=== PATIENT | female | born 1945 | race Caucasian/White ===

== ENCOUNTER → 2016-08-06 | Outpatient (CLI) | payer MEDICARE, BC ==
[2016-08-06 10:01] LABS: CH 29.4; CHCM 33.1; HDW 2.62; HGB 14.3 gm/dL (11.4-16.0); MCH 28.9 pg (25.0-35.0); MCHC 32.4 g/dL (31.0-37.0); MCV 89.1 fL (80.0-100.0); Mean Platelet Volume 8.7; RBC 4.94 m/uL (3.80-5.40); RDW 12.6 % (11.5-15.5); WBC 8.3 k/uL (3.8-10.6)
[2016-08-06 10:17] LABS: ALT 40 U/L (9-52); AST 28 U/L (14-36); Alkaline Phosphatase 117 U/L (38-126); Anion Gap 10 mmol/L; Blood Urea Nitrogen 11 mg/dL (7-17); Calcium 9.8 mg/dL (8.4-10.2); Carbon Dioxide 28 mmol/L (22-30); Chloride 106 mmol/L (98-107); Cholesterol 116 mg/dL (<200); Glucose 147 mg/dL (74-99); HDL Cholesterol 50 mg/dL (40-60); Non-African American GFR(MDRD) >60 (>60 ml/min/1.73 sqM); Potassium 4.4 mmol/L (3.5-5.1); Sodium 144 mmol/L (137-145); Total Bilirubin 0.8 mg/dL (0.2-1.3); Triglycerides 116 mg/dL (<150)
[2016-08-06 11:39] LABS: Hemoglobin A1C 7.1 % (4.2-6.1)
== END | disposition home or self-care (01) ==
LOC: LABWHC1 09:39
PROVIDERS: ATTEND Internal Medicine
DX: E11.9 Type 2 diabetes mellitus without complications (principal)
CPT/HCPCS: 36415; 80053; 80061; 83036; 84439; 84443; 85027

== ENCOUNTER → 2016-08-24 | Outpatient (CLI) | payer MEDICARE, BC ==
--- NOTE | 2016-08-25 10:07 | MM ---
Reason for exam: screening (asymptomatic). Last mammogram was performed 1 year ago. History: Patient is postmenopausal and history of other cancer. Physical Findings: A clinical breast exam by your physician is recommended on an annual basis and results should be correlated with mammographic findings. MG 3D Screening Mammo W/Cad Bilateral CC and MLO view(s) were taken. Prior study comparison: August 21, 2015, bilateral MG 3d screening mammo w/cad. August 22, 2014, bilateral MG work up mamm w CAD BILAT. There are scattered fibroglandular densities. Finding: There are typically benign round calcifications in both breasts. There is no discrete abnormality. ASSESSMENT: Benign, BI-RAD 2 RECOMMENDATION: Routine screening mammogram of both breasts in 1 year.
== END | disposition home or self-care (01) ==
LOC: RADMAMWWP 13:17
PROVIDERS: ATTEND Internal Medicine
DX: Z12.31 Encounter for screening mammogram for malignant neoplasm of breast (principal)
CPT/HCPCS: 77063; G0202

== ENCOUNTER → 2016-11-05 | Outpatient (CLI) | payer MEDICARE, BC ==
[2016-11-05 10:54] LABS: CH 29.3; CHCM 32.8; HDW 2.53; HGB 13.2 gm/dL (11.4-16.0); MCHC 32.3 g/dL (31.0-37.0); MCV 89.6 fL (80.0-100.0); Mean Platelet Volume 8.2; RBC 4.57 m/uL (3.80-5.40); RDW 12.7 % (11.5-15.5); WBC 6.4 k/uL (3.8-10.6)
[2016-11-05 11:12] LABS: ALT 38 U/L (9-52); AST 29 U/L (14-36); Alkaline Phosphatase 123 U/L (38-126); Anion Gap 9 mmol/L; Blood Urea Nitrogen 18 mg/dL (7-17); Calcium 9.7 mg/dL (8.4-10.2); Carbon Dioxide 26 mmol/L (22-30); Chloride 108 mmol/L (98-107); Cholesterol 101 mg/dL (<200); Glucose 145 mg/dL (74-99); HDL Cholesterol 45 mg/dL (40-60); Non-African American GFR(MDRD) >60 (>60 ml/min/1.73 sqM); Potassium 4.6 mmol/L (3.5-5.1); Sodium 143 mmol/L (137-145); Total Bilirubin 0.7 mg/dL (0.2-1.3); Total Protein 6.9 g/dL (6.3-8.2); Triglycerides 90 mg/dL (<150)
== END | disposition home or self-care (01) ==
LOC: LABWHC1 10:21
PROVIDERS: ATTEND Internal Medicine
DX: Z00.00 Encounter for general adult medical examination without abnormal findings (principal); E11.9 Type 2 diabetes mellitus without complications; I10 Essential (primary) hypertension; E78.00 Pure hypercholesterolemia, unspecified; E03.9 Hypothyroidism, unspecified
CPT/HCPCS: 36415; 80053; 80061; 83036; 84439; 84443; 85027

== ENCOUNTER → 2017-02-05 | Outpatient (CLI) | payer MEDICARE, BC ==
[2017-02-05 09:47] LABS: CHCM 33.7; HCT 40.9 % (34.0-46.0); HDW 2.49; HGB 13.3 gm/dL (11.4-16.0); MCH 29.2 pg (25.0-35.0); MCHC 32.6 g/dL (31.0-37.0); MCV 89.6 fL (80.0-100.0); Mean Platelet Volume 9.6; RBC 4.56 m/uL (3.80-5.40); RDW 13.9 % (11.5-15.5); WBC 6.1 k/uL (3.8-10.6)
[2017-02-05 12:17] LABS: Hemoglobin A1C 7.2 % (4.2-6.1)
[2017-02-05 12:30] LABS: ALT 38 U/L (9-52); AST 25 U/L (14-36); Alkaline Phosphatase 110 U/L (38-126); Anion Gap 10 mmol/L; Blood Urea Nitrogen 10 mg/dL (7-17); Calcium 9.6 mg/dL (8.4-10.2); Carbon Dioxide 25 mmol/L (22-30); Chloride 108 mmol/L (98-107); Cholesterol 103 mg/dL (<200); Glucose 104 mg/dL (74-99); HDL Cholesterol 46 mg/dL (40-60); Non-African American GFR(MDRD) >60 (>60 ml/min/1.73 sqM); Potassium 4.3 mmol/L (3.5-5.1); Sodium 143 mmol/L (137-145); Total Bilirubin 0.4 mg/dL (0.2-1.3); Total Protein 6.5 g/dL (6.3-8.2)
== END ==
LOC: LABWHC1 09:20
PROVIDERS: ATTEND Internal Medicine
DX: E11.9 Type 2 diabetes mellitus without complications (principal); E03.9 Hypothyroidism, unspecified; E78.00 Pure hypercholesterolemia, unspecified; I10 Essential (primary) hypertension
CPT/HCPCS: 36415; 80053; 80061; 83036; 84439; 84443; 85027

== ENCOUNTER → 2017-05-10 | Outpatient (CLI) | payer MEDICARE, BC ==
[2017-05-10 10:55] LABS: ALT 40 U/L (9-52); AST 29 U/L (14-36); Alkaline Phosphatase 108 U/L (38-126); Anion Gap 9 mmol/L; Blood Urea Nitrogen 14 mg/dL (7-17); Calcium 10.1 mg/dL (8.4-10.2); Carbon Dioxide 26 mmol/L (22-30); Chloride 107 mmol/L (98-107); Cholesterol 124 mg/dL (<200); Glucose 123 mg/dL (74-99); HDL Cholesterol 53 mg/dL (40-60); Non-African American GFR(MDRD) >60 (>60 ml/min/1.73 sqM); Potassium 4.6 mmol/L (3.5-5.1); Sodium 142 mmol/L (137-145); Total Bilirubin 0.6 mg/dL (0.2-1.3); Total Protein 7.3 g/dL (6.3-8.2)
[2017-05-10 17:54] LABS: Urine Creatinine 141.8 mg/dL
== END | disposition home or self-care (01) ==
LOC: LABWHC1 10:17
PROVIDERS: ATTEND Internal Medicine Endocrinology, Diabetes & Metabolism
DX: E78.2 Mixed hyperlipidemia (principal); E03.9 Hypothyroidism, unspecified; E55.9 Vitamin D deficiency, unspecified; E10.65 Type 1 diabetes mellitus with hyperglycemia
CPT/HCPCS: 36415; 80053; 80061; 82043; 82306; 82570; 83036; 84439; 84443

== ENCOUNTER 2017-05-20 08:03 | Day surgery (SDC) | payer MEDICARE, BC ==
[2017-05-18 12:28] VITALS: BMI 28.3
[~2017-05-20 08:03] MED LIST: ACETAMINOPHEN TAB 500 MG TAB PO ONE; HYDROmorphone 0.5 MG/0.5 ML SYRINGE IVP PRN; LACTATED RINGERS 1,000 ML IV SCH; LIDOCAINE 1% 20 ML VIAL (10MG/ML) FOR IV START INTRADERMA PRN; MELOXICAM 7.5 MG TAB PO ONE; ONDANSETRON 4 MG/2 ML VIAL IVP ONE; ceFAZolin IN SWFI 2 GM/20 ML SYRINGE IVP ONE
[2017-05-20 08:43] LABS: Glucose,Whole Blood 137 mg/dL (75-99)
[2017-05-20] MEDS ORDERED: MIDAZOLAM 2 MG/2 ML VIAL IVP ONE (09:00)
[2017-05-20] MEDS ORDERED: MIDAZOLAM 2 MG/2 ML VIAL ONE (09:29)
[2017-05-20] MEDS ORDERED: diphenhydrAMINE 50 MG/ML 1 ML VIAL ONE (09:29)
[2017-05-20] MEDS ORDERED: PROPOFOL 10 MG/ML 20 ML VIAL IV ONE (09:29)
[2017-05-20] MEDS ORDERED: ceFAZolin 1,000 MG in SODIUM CHLORIDE 0.9% 1,000 ML IRRIGATION ONE (10:09)
[2017-05-20] MEDS ORDERED: LACTATED RINGERS 1,000 ML IV ONE (10:58)
[2017-05-20 11:21] VITALS: TEMP 96.8
[2017-05-20 11:37] LABS: Glucose,Whole Blood 140 mg/dL (75-99)
[2017-05-20 13:50] VITALS: RESP 18
[2017-05-20 14:12] LABS: Glucose,Whole Blood 239 mg/dL (75-99)
[2017-05-20 16:20] VITALS: BP 149/78; PULSE 74
--- NOTE | 2017-05-21 14:05 | P.ONQ ---
Anesthesiology Proc Note - PNB - Peripheral Nerve Block Performed Popliteal Single Time Out Performed: Yes Procedure Start Time: 08:59 Procedure Stop Time: 09:04 Indication: Acute Post-Operative Pain, Requested by physician Sedation Type: Sedate with meaningful contact maintained Preparation: Sterile Prep Needle Size: 50mm (2") Needle Gauge: 21 Technique: Ultrasound (ropi .5% 20cc plus decadron 3mg) Blood Aspirated: No Pain Paresthesia on Injection Noted: No Resistance on Injection: Normal Events: Uneventful and Well Tolerated
--- NOTE | 2017-05-21 16:07 | XR ---
EXAMINATION TYPE: XR ankle limited RT, FL guidance operating room DATE OF EXAM: 05/20/2017 CLINICAL HISTORY: Right ankle fracture. TECHNIQUE: Fluoroscopy. COMPARISON: None. FINDINGS/IMPRESSION: Fluoroscopic guidance was provided during procedure performed by Dr. Sexton. A total of 8 seconds of fluoroscopic time was utilized during the procedure and 2 spot images was acquired during an open reduction internal fixation of the right ankle.
--- NOTE | 2017-07-20 16:23 | P.OP ---
Date of Procedure: 05/20/17 Procedure(s) Performed: PREOPERATIVE DIAGNOSES: Right ankle lateral malleolus fracture, Friedman B bimalleolar equivalent fracture POSTOPERATIVE DIAGNOSES: Right ankle lateral malleolus fracture, Friedman B bimalleolar equivalent PROCEDURES PERFORMED: 1. Right ankle lateral malleolus fracture open reduction and internal fixation ([employer] locking plate) 2. Examination of right ankle under anesthesia with mini-fluoroscope ANESTHESIA: incinerator plant supervisor: Ara Matthews PA-C (assistance with exposure, hemostasis, retraction, fixation, closure, dressing, splint) COMPLICATIONS: None ESTIMATED BLOOD LOSS: Less than 10 mL. TOURNIQUET: approximately 30 minutes DISPOSITION: To post-anesthesia care unit INDICATIONS: The patient is a 72 year old female with a history of right ankle fracture approximately 10 days ago, who presents to the operating room today for examination of the ankle under anesthesia with manipulation and possible fixation of ankle fracture. The fracture appears to be a bimalleolar equivalent fracture, with likely rupture of the deltoid ligament and a fracture of the lateral malleolus that is high enough to produce talar instability. I have discussed these issues with the patient, who wishes to proceed with the operative plan. I have explained the details of this surgery thoroughly and also explained the potential risks and complications. These are inclusive of, but not limited to: bleeding, infection, scarring, discomfort, blood vessel and nerve damage, stiffness, weakness, need for further surgery, failure to relieve symptoms, persistence or worsening of problems, , and other risks. The patient is aware of these risks and agrees to proceed with surgery. The consent form has been signed. PROCEDURE: After appropriate consent was obtained, the patient was taken to the operating room and placed supine on the operating table. General anesthesia was initiated. The right ankle was removed from the splint and examined and manipulated under fluoroscopic examination with a mini-C-arm device. The ankle was noted to be unstable, as evidenced by lateral talar shift of approximately 3 -4 mm with external rotation force on the foot. The lateral malleolus fracture was also noted to be displaced by 4-5 mm on the lateral view, especially. The limb was prepped and draped in the usual aseptic fashion with DuraPrep, and the patient was given IV antibiotics. The tourniquet was then inflated to 350 mmHg after careful exsanguination of the limb. Time out was called, confirming patient identity, side, procedure, and administration of antibiotics. Incision was created laterally, centered over the fracture site, for a length of approximately 4 inches. The incision was carried down through skin and into subcutaneous tissues, and blunt dissection then proceeded down to fascia. Fascia was split in line with the incision and the peroneal muscles were retracted posteriorly. The fracture site was exposed with subperiosteal dissection for as much exposure of the bone as was necessary. Fracture hematoma was evacuated and the interior of the fracture site was meticulously cleansed with irrigation and manual extraction of organizing hematoma and bone debris. The fracture was minimally comminuted and oblique in orientation. The fracture was mobilized using a fowler elevator and reduction was accomplished using a bone clamp, which was also used to secure the fracture. Anatomic reduction was accomplished. An interfragmentary screw, anterior to posterior, was placed using lag technique. Next, a precontoured fibular plate from [employer] was selected for size and side. The proximal holes were filled with 3 fully threaded 3.5 mm cortical screws with bicortical purchase. Distal holes were filled with 4 2.7 mm locking screws. No evidence of joint penetration on the mini-C-arm views was noted. The fracture was noted to be in anatomic position and stress testing under C- arm imaging showed no significant migration, shift, or tilt of the talus with external rotation stress, hindfoot inversion or eversion. Screw lengths were noted to be appropriate and the incision was then irrigated thoroughly using normal saline. Tourniquet was deflated and hemostasis was obtained using electrocautery. Fascial closure was performed with 0-Vicryl suture, subcutaneous closure with 2-0 Vicryl suture. Skin was closed with angela. Sterile dressing was applied and well padded, well molded short leg splint was applied with the ankle in neutral. Patient tolerated the procedure well and taken to recovery room in stable condition. Sponge and needle counts were correct.
== END 2017-05-20 16:35 | disposition home or self-care (01) ==
LOC: OR 08:03
PROVIDERS: ATTEND Orthopaedic Surgery
DX: S82.61XA Displaced fracture of lateral malleolus of right fibula, initial encounter for closed fracture (principal); W10.9XXA Fall (on) (from) unspecified stairs and steps, initial encounter; I11.9 Hypertensive heart disease without heart failure; E78.5 Hyperlipidemia, unspecified; E03.9 Hypothyroidism, unspecified; H91.90 Unspecified hearing loss, unspecified ear; H40.9 Unspecified glaucoma; K21.9 Gastro-esophageal reflux disease without esophagitis; E10.9 Type 1 diabetes mellitus without complications; Z85.828 Personal history of other malignant neoplasm of skin; Z96.41 Presence of insulin pump (external) (internal); Z79.84 Long term (current) use of oral hypoglycemic drugs; Z79.82 Long term (current) use of aspirin; Z79.4 Long term (current) use of insulin; Z79.52 Long term (current) use of systemic steroids; Z79.899 Other long term (current) drug therapy; Z88.1 Allergy status to other antibiotic agents
CPT/HCPCS: 73600; 27792; C1713; J2250; J1200; J0690 ×2; J2405; J2704

== ENCOUNTER → 2017-07-19 | Outpatient (CLI) | payer MEDICARE, BC ==
[2017-07-19 10:00] LABS: ALT 39 U/L (9-52); AST 26 U/L (14-36); Albumin 4.2 g/dL (3.5-5.0); Alkaline Phosphatase 99 U/L (38-126); Anion Gap 10 mmol/L; Blood Urea Nitrogen 14 mg/dL (7-17); Calcium 10.8 mg/dL (8.4-10.2); Carbon Dioxide 29 mmol/L (22-30); Chloride 104 mmol/L (98-107); Cholesterol 119 mg/dL (<200); Glucose 138 mg/dL (74-99); HDL Cholesterol 51 mg/dL (40-60); LDL Cholesterol,Calculated 42 mg/dL (0-99); Potassium 4.7 mmol/L (3.5-5.1); Sodium 143 mmol/L (137-145); Total Bilirubin 0.4 mg/dL (0.2-1.3); Total Protein 6.9 g/dL (6.3-8.2); Triglycerides 128 mg/dL (<150)
[2017-07-19 10:15] LABS: T4, Free (Free Thyroxine) 1.76 ng/dL (0.78-2.19)
== END | disposition home or self-care (01) ==
LOC: LABWHC1 08:47
PROVIDERS: ATTEND Internal Medicine Endocrinology, Diabetes & Metabolism
DX: E78.2 Mixed hyperlipidemia (principal); E10.65 Type 1 diabetes mellitus with hyperglycemia; E03.8 Other specified hypothyroidism
CPT/HCPCS: 36415; 80053; 80061; 82043; 82570; 83036; 84439; 84443

== ENCOUNTER → 2017-09-12 | Outpatient (CLI) | payer MEDICARE, BC ==
--- NOTE | 2017-09-13 09:50 | MM ---
Reason for exam: screening (asymptomatic). Last mammogram was performed 1 year and 1 month ago. History: Patient is postmenopausal and history of other cancer. Physical Findings: A clinical breast exam by your physician is recommended on an annual basis and results should be correlated with mammographic findings. MG 3D Screening Mammo W/Cad Bilateral CC and MLO view(s) were taken. XCCL view(s) were taken of the right breast. Prior study comparison: August 24, 2016, bilateral MG 3d screening mammo w/cad. August 21, 2015, bilateral MG 3d screening mammo w/cad. There are scattered fibroglandular densities. There is no discrete abnormality. No significant changes when compared with prior studies. ASSESSMENT: Negative, BI-RAD 1 RECOMMENDATION: Routine screening mammogram of both breasts in 1 year.
== END | disposition home or self-care (01) ==
LOC: RADMAMWWP 10:55
PROVIDERS: ATTEND Internal Medicine
DX: Z12.31 Encounter for screening mammogram for malignant neoplasm of breast (principal)
CPT/HCPCS: 77063; 77067

== ENCOUNTER → 2017-09-30 | Outpatient (CLI) | payer MEDICARE, BC ==
--- NOTE | 2017-09-30 11:59 | XR ---
EXAMINATION TYPE: XR ribs bilat w pa chest xray DATE OF EXAM: 09/30/2017 CLINICAL HISTORY: Chest and bilateral rib pain. TECHNIQUE: Single frontal view of the chest is obtained. A frontal and oblique images of the bilater al images of the bilateral ribs are obtained. COMPARISON: None FINDINGS: There is no focal air space opacity, pleural effusion, or pneumothorax seen. The cardiac silhouette size is within normal limits. The osseous structures are intact. No acute displaced rib fractures are seen bilaterally. No suspicious focal lytic, expansile, or sclerotic lesion is identified. Overlying soft tissue is unr emarkable bilaterally. IMPRESSION: 1. No acute cardiopulmonary process. 2. No acute displaced rib fractures are seen bilaterally.
== END | disposition home or self-care (01) ==
LOC: RADXRMAIN 11:22
PROVIDERS: ATTEND Internal Medicine
DX: R07.89 Other chest pain (principal)
CPT/HCPCS: 71111

== ENCOUNTER → 2017-12-20 | Outpatient (CLI) | payer MEDICARE, BC ==
[2017-12-20 09:58] LABS: ALT 37 U/L (9-52); AST 26 U/L (14-36); Alkaline Phosphatase 101 U/L (38-126); Anion Gap 10 mmol/L; Blood Urea Nitrogen 13 mg/dL (7-17); Calcium 9.8 mg/dL (8.4-10.2); Carbon Dioxide 26 mmol/L (22-30); Chloride 106 mmol/L (98-107); Glucose 122 mg/dL (74-99); Potassium 4.7 mmol/L (3.5-5.1); Sodium 142 mmol/L (137-145); Total Bilirubin 0.5 mg/dL (0.2-1.3); Total Protein 6.3 g/dL (6.3-8.2)
[2017-12-20 17:33] LABS: Hemoglobin A1C 7.2 % (4.0-6.0)
== END | disposition home or self-care (01) ==
LOC: LABWHC1 08:41
PROVIDERS: ATTEND Internal Medicine
DX: E10.65 Type 1 diabetes mellitus with hyperglycemia (principal)
CPT/HCPCS: 36415; 80053; 83036

== ENCOUNTER → 2018-03-23 | Outpatient (CLI) | payer MEDICARE, BC ==
[2018-03-23 20:07] LABS: Hemoglobin A1C 6.9 % (4.0-6.0)
== END | disposition home or self-care (01) ==
LOC: LABWHC1 07:54
PROVIDERS: ATTEND Internal Medicine
DX: E10.65 Type 1 diabetes mellitus with hyperglycemia (principal)
CPT/HCPCS: 36415; 83036

== ENCOUNTER 2018-04-12 07:13 | Day surgery (SDC) | payer MEDICARE, BC ==
[2018-04-10 15:30] VITALS: BMI 28.1
[~2018-04-12 07:13] MED LIST changes: -ACETAMINOPHEN TAB 500 MG TAB PO ONE; -HYDROmorphone 0.5 MG/0.5 ML SYRINGE IVP PRN; -LIDOCAINE 1% 20 ML VIAL (10MG/ML) FOR IV START INTRADERMA PRN; -MELOXICAM 7.5 MG TAB PO ONE; -ONDANSETRON 4 MG/2 ML VIAL IVP ONE; -ceFAZolin IN SWFI 2 GM/20 ML SYRINGE IVP ONE
[2018-04-12 07:43] VITALS: TEMP 96.8
[2018-04-12] MEDS ORDERED: LIDOCAINE 1% 20 ML VIAL (10MG/ML) FOR IV START INTRADERMA ONE (07:44)
[2018-04-12 07:46] LABS: Glucose,Whole Blood 111 mg/dL (75-99)
[2018-04-12] MEDS ORDERED: PROPOFOL 10 MG/ML 20 ML VIAL IV ONE (08:44)
[2018-04-12] MEDS ORDERED: LIDOCAINE 1% INJ 10MG/ML (20 ML MDV) ONE (08:44)
--- NOTE | 2018-04-12 08:57 | P.PCN ---
Date of Procedure: 04/12/18 Procedure(s) Performed: BRIEF HISTORY: Patient is a 72-year-old, pleasant, white female, scheduled for an upper endoscopy as a part of evaluation of long-standing history of GERD and left upper quadrant abdominal pain of several years duration. She has been on Zantac 150 milligrams twice daily with some improvement in symptoms. PROCEDURE PERFORMED: Esophagogastroduodenoscopy with biopsy. PREOPERATIVE DIAGNOSIS: Long sending history of GERD/left upper quadrant abdominal pain. IV sedation per anesthesia. PROCEDURE: After informed consent was obtained, the patient was brought into the endoscopy unit. IV sedation was administered by Anesthesia under continuous monitoring. Initially the Olympus GIF-140 video endoscope was inserted into the mouth. Esophagus intubated without any difficulty. It was gradually advanced into the stomach and duodenum and carefully examined. The bulb and the second part of the duodenum appeared normal. The scope at this time was withdrawn to the stomach, adequately insufflated with air, and upon careful examination, mucosa of the antrum, body, cardia and the fundus appeared normal. The scope was then withdrawn into the esophagus. The GE junction was located at 35 centimeters from the incisors. There were linear erosions noted in the distal esophagus consistent with LA grade B reflux esophagitis. Also there was possible Pompa's esophagus with salmon-colored mucosa extending 5-6 mm proximal to the GE junction and this was biopsied. The rest of the esophagus appeared normal and the patient tolerated the procedure well. IMPRESSION: 1. Linear erosions in the distal esophagus consistent with LA grade B reflux esophagitis. 2. Small hiatal hernia and possible short segment Pompa's esophagus status post biopsy. RECOMMENDATIONS: The findings of this examination were discussed with the patient as well as her family. She was advised to follow with the biopsy results. She will be started on Prilosec 20 mg daily and was briefly educated about antireflux measures. She'll be seen in office in 3 months.
[2018-04-12 09:25] LABS: Glucose,Whole Blood 110 mg/dL (75-99)
[2018-04-12 09:33] VITALS: BP 148/77; PULSE 70; RESP 28
== END 2018-04-12 09:39 | disposition home or self-care (01) ==
LOC: ORWHC2ENDO 07:13
PROVIDERS: ATTEND Internal Medicine Gastroenterology
DX: K21.0 Gastro-esophageal reflux disease with esophagitis (principal); K22.10 Ulcer of esophagus without bleeding; K44.9 Diaphragmatic hernia without obstruction or gangrene; I10 Essential (primary) hypertension; E78.5 Hyperlipidemia, unspecified; E11.9 Type 2 diabetes mellitus without complications; E07.9 Disorder of thyroid, unspecified; H91.90 Unspecified hearing loss, unspecified ear; H40.9 Unspecified glaucoma; Z79.82 Long term (current) use of aspirin; Z79.899 Other long term (current) drug therapy; Z79.890 Hormone replacement therapy; Z79.4 Long term (current) use of insulin; Z96.41 Presence of insulin pump (external) (internal); Z88.8 Allergy status to other drugs, medicaments and biological substances; Z94.7 Corneal transplant status
CPT/HCPCS: 43239; J2001; J2704; 88305; 88312

== ENCOUNTER → 2018-07-06 | Outpatient (CLI) | payer MEDICARE, BC ==
[2018-07-06 20:47] LABS: Hemoglobin A1C 6.5 % (4.0-6.0)
== END | disposition home or self-care (01) ==
LOC: LABWHC1 10:02
PROVIDERS: ATTEND Internal Medicine
DX: E10.65 Type 1 diabetes mellitus with hyperglycemia (principal)
CPT/HCPCS: 36415; 83036

== ENCOUNTER → 2018-10-05 | Outpatient (CLI) | payer MEDICARE, BC ==
[2018-10-05 16:51] LABS: Anion Gap 4.8 mmol/L (4.00-12.00); Carbon Dioxide 26.2 mmol/L (21.6-31.8); Potassium 4.8 mmol/L (3.5-5.5)
[2018-10-05 16:56] LABS: T4, Free (Free Thyroxine) 1.1 ng/dL (0.80-1.80)
[2018-10-05 19:49] LABS: Hemoglobin A1C 6.5 % (4.0-6.0)
== END | disposition home or self-care (01) ==
LOC: LABWHC1 09:14
PROVIDERS: ATTEND Internal Medicine
DX: E10.65 Type 1 diabetes mellitus with hyperglycemia (principal); E55.9 Vitamin D deficiency, unspecified; E03.9 Hypothyroidism, unspecified; E78.5 Hyperlipidemia, unspecified
CPT/HCPCS: 36415; 80048; 80061; 82043; 82306; 82570; 83036; 84439; 84443

== ENCOUNTER → 2018-10-11 | Outpatient (CLI) | payer MEDICARE, BC ==
--- NOTE | 2018-10-12 11:32 | MM ---
Reason for exam: screening (asymptomatic). Last mammogram was performed 1 year and 1 month ago. History: Patient is postmenopausal and history of other cancer. Physical Findings: A clinical breast exam by your physician is recommended on an annual basis and results should be correlated with mammographic findings. MG 3D Screening Mammo W/Cad Bilateral CC and MLO view(s) were taken. Prior study comparison: September 12, 2017, bilateral MG 3d screening mammo w/cad. August 24, 2016, bilateral MG 3d screening mammo w/cad. There are scattered fibroglandular densities. Finding #1: There is a 7 mm equal density (isodense), lobulated mass in the inner quadrant, posterior, central position of the right breast. Finding #2: There are typically benign calcifications in both breasts. ASSESSMENT: Incomplete: need additional imaging evaluation, BI-RAD 0 RECOMMENDATION: Special view mammogram of the right breast. If lesion persists on supplemental views, image directed ultrasound is recommended. [facility] will attempt to contact patient to return for supplemental views and ultrasound if indicated.
== END | disposition home or self-care (01) ==
LOC: RADMAMWWP 10:46
PROVIDERS: ATTEND Internal Medicine
DX: Z12.31 Encounter for screening mammogram for malignant neoplasm of breast (principal)
CPT/HCPCS: 77063; 77067

== ENCOUNTER → 2018-10-13 | Outpatient (CLI) | payer MEDICARE, BC ==
--- NOTE | 2018-10-16 12:06 | MM ---
Reason for exam: additional evaluation requested from abnormal screening. Last mammogram was performed less than 1 month ago. History: Patient is postmenopausal and history of other cancer. Physical Findings: Nurse did not find any significant physical abnormalities on exam. MG 3D Work Up W/Cad RT Spot compression CC, spot compression MLO, spot compression LM, and LM view(s) were taken of the right breast. Prior study comparison: October 11, 2018, bilateral MG 3d screening mammo w/cad. September 12, 2017, bilateral MG 3d screening mammo w/cad. Nodule persists 7cm from nipple. Ultrasound recommended. These results were verbally communicated with the patient and result sheet given to the patient on 10/13/18. ASSESSMENT: Incomplete: need additional imaging evaluation, BI-RAD 0 RECOMMENDATION: Ultrasound of the right breast.
--- NOTE | 2018-10-16 12:07 | USB ---
Reason for exam: additional evaluation requested from abnormal screening. History: Patient is postmenopausal and history of other cancer. US Breast Workup Limited RT Right limited breast ultrasound including focal area of concern, retroareolar and axilla demonstrates no cystic or solid lesion seen. These results were verbally communicated with the patient and result sheet given to the patient on 10/13/18. ASSESSMENT: Suspicious, BI-RAD 4 RECOMMENDATION: Stereotactic core biopsy of the right breast. Called Dr. Lopez with mammographic findings and patient requests to call and make with Dr. Lopez. Biopsy scheduled for 11/03/18 at 8:00. PRELIMINARY REPORT CALLED AND FAXED TO DR. LOPEZ ON 10/16/18.
== END | disposition home or self-care (01) ==
LOC: RADMAMWWP 14:14
PROVIDERS: ATTEND Internal Medicine
DX: R92.8 Other abnormal and inconclusive findings on diagnostic imaging of breast (principal)
CPT/HCPCS: 77065; 76642; G0279; 77061

== ENCOUNTER → 2018-11-03 | Day surgery (SDC) | payer MEDICARE, BC ==
[2018-11-03 07:24] VITALS: RESP 16; TEMP 97.7; BMI 61.7
[2018-11-03 08:59] VITALS: BP 145/69; PULSE 62
--- NOTE | 2018-11-06 08:23 | MM ---
Stereotactic Mammotome core biopsy right breast. HISTORY: R92.8 Abnormal Mammogram The nodule in question within the right breast were targeted by the undersigned. Procedure was performed by the undersigned. Informed consent was obtained and all of the patients questions were answered. The standard sterile technique was utilized and appropriate local anesthesia was obtained with 1% lidocaine. Mammotome probe was advanced and multiple core samples were obtained and sent to pathology for interpretation. Microclip marker was deployed at the site of biopsy. Post procedural mammogram demonstrates appropriate deployment of radiopaque clip marker. The patient tolerated the procedure well and left the department in stable condition. Pathology results are pending. IMPRESSION: Successful stereotactic core biopsy right breast with pathology results pending. Pathology Results: Benign RIGHT BREAST, STEREOTACTIC CORE BIOPSY: Fibrocystic changes including cysts, fibrosis, apocrine metaplasia and columnar cell change. Recommendation Follow up mammogram of the right breast in 6 months. NEFTALY
== END ==
LOC: RADMAMWWP 06:55
PROVIDERS: ATTEND Internal Medicine
DX: N60.31 Fibrosclerosis of right breast (principal); N60.11 Diffuse cystic mastopathy of right breast; N60.81 Other benign mammary dysplasias of right breast
CPT/HCPCS: 88305; 19081; A4648; J2001

== ENCOUNTER → 2019-01-06 | Outpatient (CLI) | payer MEDICARE, BC ==
[2019-01-06 20:37] LABS: Hemoglobin A1C 6.7 % (4.0-6.0)
== END | disposition home or self-care (01) ==
LOC: LABWHC1 08:44
PROVIDERS: ATTEND Internal Medicine
DX: E10.65 Type 1 diabetes mellitus with hyperglycemia (principal)
CPT/HCPCS: 36415; 83036

== ENCOUNTER → 2019-03-09 | Outpatient (CLI) | payer MEDICARE, BC | END | disposition home or self-care (01) | LOC: LABWHC1 07:52 | PROVIDERS: ATTEND Internal Medicine | DX: E10.8 Type 1 diabetes mellitus with unspecified complications (principal) | CPT/HCPCS: 36415; 82043; 82570; 82607 ==

== ENCOUNTER → 2019-05-07 | Outpatient (CLI) | payer MEDICARE, BC ==
--- NOTE | 2019-05-07 14:28 | MM ---
Reason for exam: follow-up at short interval from prior study. Last mammogram was performed 7 months ago. History: Patient is postmenopausal and history of other cancer. Benign MG stereo VAD BX RT of the right breast, November 03, 2018. Physical Findings: Nurse did not find any significant physical abnormalities on exam. MG 3D Diag Mammo W/Cad RT CC, MLO, and ML view(s) were taken of the right breast. Prior study comparison: October 13, 2018, right breast MG 3d work up w/cad RT. October 11, 2018, bilateral MG 3d screening mammo w/cad. There are scattered fibroglandular densities. There is a 7-8mm oval circumscribed mass of the right central inner breast 7cm from nipple located just anterior to the biopsy marker. There is increase in size from the prior. These results were verbally communicated with the patient and result sheet given to the patient on 05/07/19. ASSESSMENT: Incomplete: need additional imaging evaluation, BI-RAD 0 RECOMMENDATION: Ultrasound of the right breast. (medial half)
--- NOTE | 2019-05-07 14:31 | USB ---
Reason for exam: additional evaluation requested from abnormal screening. History: Patient is postmenopausal and history of other cancer. Benign MG stereo VAD BX RT of the right breast, November 03, 2018. US Breast Limited RT Right limited breast ultrasound including focal area of concern, retroareolar and axilla demonstrates a 0.4 x 0.7 x 0.3cm oval, hypoechoic lesion at 3 o'clock, location correlates with mammogram, biopsy recommended and a 1.5 x 2.4 x 1.2cm oval node at the axilla. These results were verbally communicated with the patient and result sheet given to the patient on 05/07/19. ASSESSMENT: Suspicious, BI-RAD 4 RECOMMENDATION: Ultrasound core biopsy of the right breast. Called office with mammographic findings and has scheduled an appointment for the patient for 06/11/19 at 12:[address] Lopez. Biopsy scheduled for 06/06/19 at 12:20. PRELIMINARY REPORT CALLED AND FAXED TO DR. LOPEZ ON 05/07/19.
== END | disposition home or self-care (01) ==
LOC: RADMAMWWP 10:47
PROVIDERS: ATTEND Internal Medicine
DX: R92.8 Other abnormal and inconclusive findings on diagnostic imaging of breast (principal)
CPT/HCPCS: 77065; 76642; G0279; 77061

== ENCOUNTER → 2019-06-06 | Day surgery (SDC) | payer MEDICARE, BC ==
[2019-06-06 11:22] VITALS: RESP 16; TEMP 98
[2019-06-06 12:40] VITALS: BP 177/73; PULSE 56
--- NOTE | 2019-06-06 12:44 | USB ---
EXAMINATION TYPE: US biopsy breast VAD RT, MG diagnostic mammo RT wo CAD DATE OF EXAM: 06/06/2019 CLINICAL HISTORY: R92.8 ABNORMAL MAMMOGRAM. TECHNIQUE: Ultrasound guided core biopsy of right breast. COMPARISON: 05/07/2019 FINDINGS: The procedure of ultrasound guided core biopsy was explained to the patient. Benefits, alternatives, and risks were discussed. An informed consent was then obtained. Preprocedural timeout was performed. The patient was placed in supine positioning for imaging and for the procedure. The overlying skin was prepped and draped in usual sterile fashion. 10 cc of 1% lidocaine was used as anesthetic into the skin and subcutaneous tissue up to the 0.4 x 0.7 x 0.3 cm mass at the 3:00 position in the right breast. Under ultrasound guidance, a 12-gauge vacuum assisted biopsy gun device was used to obtain 3 core samples. Following this, a coil-shaped biopsy marker was left at the site of biopsy. Postprocedure mammogram demonstrates appropriate biopsy marker placement and concordance with the mammographic mass. The patient tolerated the procedure well without any immediate complication. The patient was kept in the radiology department for short stay after the procedure and then discharged home in stable condition. IMPRESSION: Successful, uncomplicated ultrasound guided core biopsy of area of a 0.4 x 0.7 x 0.3 cm mass at the 3:00 position in the right breast, full pathology results to follow. Pathology Results: Benign RIGHT BREAST LESION AT THREE O'CLOCK POSITION, NEEDLE CORE BIOPSY: Pigment laden histiocytes and fat necrosis consistent with prior trauma or biopsy procedure. Recommendation Follow up ultrasound of the right breast in 6 months. NEFTALY
== END ==
LOC: RADUSWWP 10:52
PROVIDERS: ATTEND Internal Medicine
DX: N64.1 Fat necrosis of breast (principal)
CPT/HCPCS: 88305; 77065; 19083; A4648; J2001

== ENCOUNTER → 2019-07-19 | Outpatient (CLI) | payer MEDICARE, BC ==
[2019-07-19 17:38] LABS: ALT 148 U/L (8-44); AST 112 U/L (13-35)
[2019-07-19 19:19] LABS: Hepatitis A Antibody IgM Non-Reactive (Non-Reactive); Hepatitis B Core IgM Non-Reactive (Non-Reactive); Hepatitis B Surface Antigen Non-Reactive (Non-Reactive); Hepatitis C IgG Antibody Reactive (Non-Reactive)
== END | disposition home or self-care (01) ==
LOC: LABWHC1 09:46
PROVIDERS: ATTEND Internal Medicine
DX: R94.5 Abnormal results of liver function studies (principal)
CPT/HCPCS: 36415; 80074; 84450; 84460

== ENCOUNTER → 2019-07-24 | Outpatient (CLI) | payer MEDICARE, BC | END | disposition home or self-care (01) | LOC: LABWHC1 17:02 | PROVIDERS: ATTEND Internal Medicine | DX: R76.8 Other specified abnormal immunological findings in serum (principal) | CPT/HCPCS: 36415; 87522 ==

== ENCOUNTER → 2019-09-04 | Outpatient (CLI) | payer MEDICARE, BC ==
--- NOTE | 2019-09-04 08:25 | US ---
EXAMINATION TYPE: US abdomen complete DATE OF EXAM: 09/04/2019 COMPARISON: NONE CLINICAL HISTORY: B18.2 CHR HEP C WITHOUT HEPATIC COMA. Difficult exam due to overlying bowel gas EXAM MEASUREMENTS: Liver Length: 13.9 cm Gallbladder Wall: 0.2 cm CBD: 0.5 cm Spleen: 7.7 cm Right Kidney: 11.8 x 5.4 x 5.0 cm Left Kidney: 9.9 x 4.6 x 4.2 cm Pancreas: Obscured by bowel gas Liver: Heterogeneous Gallbladder: wnl Evidence for sonographic Fallon's sign: No CBD: wnl Spleen: wnl Right Kidney: No hydronephrosis or masses seen Left Kidney: No hydronephrosis or masses seen Upper IVC: wnl Abd Aorta: wnl IMPRESSION: 1. Visualized abdomen ultrasound is unremarkable. There is some limitation due to bowel gas.
== END | disposition home or self-care (01) ==
LOC: RADUSWWP 07:29
PROVIDERS: ATTEND Internal Medicine Gastroenterology
DX: R14.3 Flatulence (principal); B18.2 Chronic viral hepatitis C
CPT/HCPCS: 76700

== ENCOUNTER → 2019-12-11 | Outpatient (CLI) | payer MEDICARE, BC ==
--- NOTE | 2019-12-11 15:36 | XR ---
EXAMINATION TYPE: XR Hip Complete RT DATE OF EXAM: 12/11/2019 COMPARISON: NONE HISTORY: Pain TECHNIQUE: 2 views submitted FINDINGS: There is no evidence of erosive change or acute fracture. Calcification the pelvis likely vascular. Mild concentric narrowing the hip joint. IMPRESSION: 1. 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
--- NOTE | 2019-12-11 15:38 | XR ---
EXAM TYPE: LUMBAR SPINE X RAY SERIES COMPARISON: NONE HISTORY: Pain TECHNIQUE: 4 views are submitted. FINDINGS: Alignment is anatomic. The pedicles are intact. The transverse processes are intact. There is mult ilevel severe degenerative disc disease most marked at L5-S1 with multilevel facet arthropathy. There is sclerosis involving the L2 vertebral body. Atherosclerotic change of the aorta noted. IMPRESSION: 1. Multilevel severe degenerative disc disease most marked at L5-S1. 2. Sclerosis of the L2 vertebral body could be correlated with bone scan.
== END | disposition home or self-care (01) ==
LOC: RADXRYALE 14:53
PROVIDERS: ATTEND Internal Medicine
DX: M12.851 Other specific arthropathies, not elsewhere classified, right hip (principal); M51.37 Other intervertebral disc degeneration, lumbosacral region; G95.89 Other specified diseases of spinal cord
CPT/HCPCS: 72110; 73502

== ENCOUNTER → 2020-01-08 | Outpatient (CLI) | payer MEDICARE, BC ==
--- NOTE | 2020-01-08 09:41 | MM ---
Reason for exam: follow-up at short interval from prior study. Last mammogram was performed 7 months ago. History: Patient is postmenopausal and history of other cancer. Benign US biopsy breast VAD RT of the right breast, June 06, 2019. Benign MG stereo VAD BX RT of the right breast, November 03, 2018. Took estrogen for 2 years. Took progesterone for 2 years. Physical Findings: Nurse did not find any significant physical abnormalities on exam. MG 3D Diag Mammo W/Cad KORY Bilateral CC and MLO view(s) were taken. Prior study comparison: June 06, 2019, right breast MG diagnostic mammo RT wo CAD. May 07, 2019, right breast MG 3d diag mammo w/cad RT. October 11, 2018, bilateral MG 3d screening mammo w/cad. There are scattered fibroglandular densities. No significant new findings when compared with previous films. These results were verbally communicated with the patient and result sheet given to the patient on 01/08/20. ASSESSMENT: Benign, BI-RAD 2 RECOMMENDATION: Routine screening mammogram of both breasts in 1 year.
--- NOTE | 2020-01-08 09:42 | USB ---
Reason for exam: follow-up at short interval from prior study. History: Patient is postmenopausal and history of other cancer. Benign US biopsy breast VAD RT of the right breast, June 06, 2019. Benign MG stereo VAD BX RT of the right breast, November 03, 2018. Took estrogen for 2 years. Took progesterone for 2 years. US Breast RT Right complete breast ultrasound includes all four quadrants, the retroareolar region and axilla. Finding demonstrates no cystic or solid lesion seen. These results were verbally communicated with the patient and result sheet given to the patient on 01/08/20. ASSESSMENT: Negative, BI-RAD 1 RECOMMENDATION: Routine screening mammogram of both breasts in 1 year.
== END | disposition home or self-care (01) ==
LOC: RADMAMWWP 07:02
PROVIDERS: ATTEND Internal Medicine
DX: N60.11 Diffuse cystic mastopathy of right breast (principal); R92.8 Other abnormal and inconclusive findings on diagnostic imaging of breast
CPT/HCPCS: 77066; 76641; G0279; 77062

== ENCOUNTER → 2020-02-11 | Outpatient (CLI) | payer MEDICARE, BC ==
[2020-02-11 16:40] LABS: Alpha Fetoprotein, Tumor Mkr 10.4 ng/mL (0.0-7.9)
[2020-02-11 17:08] LABS: African American GFR (CKD) 97.5 (60.0-200.0); Albumin 4.3 g/dL (3.80-4.90); Albumin/Globulin Ratio 2.05 (1.60-3.17); Bilirubin, Conjugated 0.2 mg/dL (0.20-0.40); Bilirubin,Unconjugated 0.3 mg/dL; Globulin 2.1 g/dL (1.6-3.3); Non-African American GFR(CKD) 84.2 (60.0-200.0); Total Bilirubin 0.5 mg/dL (0.2-1.2); Total Protein 6.4 g/dL (6.2-8.2)
== END | disposition home or self-care (01) ==
LOC: LABWHC1 07:31
PROVIDERS: ATTEND Internal Medicine Gastroenterology
DX: B18.2 Chronic viral hepatitis C (principal)
CPT/HCPCS: 36415; 80076; 82105; 82565; 87522

== ENCOUNTER → 2020-09-16 | Outpatient (CLI) | payer MEDICARE, BC ==
[2020-09-16 15:13] LABS: Basophils # (A) 0.09 X 10*3/uL (0.00-0.10); Basophils % (A) 1.4 %; Eosinophils # (A) 0.39 X 10*3/uL (0.04-0.35); Eosinophils % (A) 6.2 %; HCT 40.3 % (37.2-46.3); HGB 13.1 g/dL (12.0-15.0); Lymphocytes # (A) 1.39 X 10*3/uL (0.90-5.00); Lymphocytes % (A) 22.1 %; MCHC 32.5 g/dL (32.0-37.0); MCV 89.2 fL (80.0-97.0); Mean Platelet Volume 12.6 fL (9.5-12.2); Monocytes # (A) 0.54 X 10*3/uL (0.20-1.00); Monocytes % (A) 8.6 %; Neutrophils # (A) 3.86 X 10*3/uL (1.80-7.70); Neutrophils % (A) 61.4 %; Platelet Count 203 X 10*3/uL (140-440); RBC 4.52 X 10*6/uL (4.10-5.20); RDW 12.1 % (11.5-14.5); WBC 6.29 X 10*3/uL (4.50-10.00)
[2020-09-16 15:52] LABS: INR 0.94 (0.90-1.11); Prothrombin Time 10.3 sec (9.9-11.9)
[2020-09-16 16:15] LABS: African American GFR (CKD) 82.4 (60.0-200.0); Albumin 4.5 g/dL (3.80-4.90); Albumin/Globulin Ratio 2.14 (1.60-3.17); Anion Gap 7.5 mmol/L (4.00-12.00); BUN/Creat Ratio 18.75 Ratio (12.00-20.00); Bilirubin, Conjugated 0.2 mg/dL (0.20-0.40); Bilirubin,Unconjugated 0.3 mg/dL; Calcium 10.2 mg/dL (8.7-10.3); Carbon Dioxide 23.5 mmol/L (21.6-31.8); Globulin 2.1 g/dL (1.6-3.3); Non-African American GFR(CKD) 71.1 (60.0-200.0); Potassium 4.6 mmol/L (3.5-5.5); Total Bilirubin 0.5 mg/dL (0.3-1.2); Total Protein 6.6 g/dL (6.2-8.2)
[2020-09-16 16:31] LABS: Alpha Fetoprotein, Tumor Mkr <2.5 ng/mL (0.0-7.9)
== END | disposition home or self-care (01) ==
LOC: LABWHC1 08:45
PROVIDERS: ATTEND Internal Medicine Gastroenterology
DX: B19.20 Unspecified viral hepatitis C without hepatic coma (principal); K74.69 Other cirrhosis of liver
CPT/HCPCS: 36415; 80048; 80076; 82105; 85025; 85610; 87522

== ENCOUNTER → 2020-09-17 | Outpatient (CLI) | payer MEDICARE, BC ==
--- NOTE | 2020-09-17 12:01 | US ---
EXAMINATION TYPE: US abdomen complete DATE OF EXAM: 09/17/2020 COMPARISON: CLINICAL HISTORY: K74.69 Other cirrhosis of liver,. abnormal labs. No pain. Hep C per patient. EXAM MEASUREMENTS: Liver Length: 15.0 cm Gallbladder Wall: 0.2 cm CBD: 0.6 cm Spleen: 8.0 cm Right Kidney: 10.3 x 4.9 x 4.0 cm Left Kidney: 9.9 x 4.1 x 4.8 cm Pancreas: Tail obscured by overlying bowel gas Liver: There is mild heterogeneity compatible some mild fatty infiltration Gallbladder: wnl, fold seen Evidence for sonographic Fallon's sign: neg CBD: wnl Spleen: wnl Right Kidney: No hydronephrosis or masses seen Left Kidney: No hydronephrosis or masses seen Upper IVC: wnl Abd Aorta: No AAA visualized IMPRESSION: 1. Mild fatty infiltration of the liver.
== END ==
LOC: RADUSWWP 08:52
PROVIDERS: ATTEND Internal Medicine Gastroenterology
DX: K76.0 Fatty (change of) liver, not elsewhere classified (principal)
CPT/HCPCS: 76700

== ENCOUNTER → 2021-01-29 | Outpatient (CLI) | payer MEDICARE, BC ==
--- NOTE | 2021-02-02 08:47 | MM ---
Reason for exam: screening (asymptomatic). Last mammogram was performed 1 year and 1 month ago. History: Patient is postmenopausal and history of other cancer. Benign US biopsy breast VAD RT of the right breast, June 06, 2019. Benign MG stereo VAD BX RT of the right breast, November 03, 2018. Took estrogen for 2 years. Took progesterone for 2 years. Physical Findings: A clinical breast exam by your physician is recommended on an annual basis and results should be correlated with mammographic findings. MG 3D Screening Mammo W/Cad Bilateral CC and MLO view(s) were taken. Prior study comparison: January 08, 2020, bilateral MG 3d diag mammo w/cad KORY. June 06, 2019, right breast MG diagnostic mammo RT wo CAD. There are scattered fibroglandular densities. Previous mammotome biopsy in the right breast x 2. No significant changes when compared with prior studies. ASSESSMENT: Benign, BI-RAD 2 RECOMMENDATION: Routine screening mammogram of both breasts in 1 year.
== END | disposition home or self-care (01) ==
LOC: RADMAMWWP 13:07
PROVIDERS: ATTEND Internal Medicine
DX: Z12.31 Encounter for screening mammogram for malignant neoplasm of breast (principal)
CPT/HCPCS: 77063; 77067

== ENCOUNTER → 2021-04-09 | Outpatient (CLI) | payer MEDICARE, BC ==
--- NOTE | 2021-04-09 12:56 | US ---
EXAMINATION TYPE: US abdomen complete DATE OF EXAM: 04/09/2021 COMPARISON: 09/17/2020 CLINICAL HISTORY: 75-year-old female K74.69 Other cirrhosis of liver. Patient states she has Hepatit is C. TECHNIQUE: Multiple sonographic images of the abdomen are obtained. FINDINGS: EXAM MEASUREMENTS: Liver Length: 13.4 cm Gallbladder Wall: 0.2 cm CBD: 0.5 cm Spleen: 10.1 cm Right Kidney: 11.6 x 3.8 x 5.3 cm Left Kidney: 10.4 x 5.3 x 4.7 cm Mate Chief notes: Patient of large body habitus. Pancreas: The pancreatic tail is obscured by bowel gas shadowing. Liver: Coarsened hepatic echotexture. Unable to visualize to dome due to body habitus within the visu alized portions, no focal lesion is seen. Gallbladder: Suggestion of some tumefactive sludge. Junctional fold is noted. No abnormal distention, wall thickening, or pericholecystic fluid. Evidence for sonographic Fallon's sign: no CBD: wnl Spleen: not well seen due to limited acoustic windows Right Kidney: No hydronephrosis. Left Kidney: No hydronephrosis. 5 mm echogenic focus at the upper and midpole. Upper IVC: wnl Abd Aorta: atherosclerotic changes, bifurcation obscured by bowel gas IMPRESSION: 1. Coarsened hepatic echotexture compatible with patient's cirrhosis. There is limited visualization of the hepatic dome due to patient body habitus. No evidence for hepatoma within the visualized porti ons. 2. Suggestion of some tumefactive sludge in the gallbladder. No biliary ductal dilatation. 3. 5 mm nonobstructive left renal calculus.
== END | disposition home or self-care (01) ==
LOC: RADUSWWP 08:54
PROVIDERS: ATTEND Internal Medicine Gastroenterology
DX: K74.69 Other cirrhosis of liver (principal); B19.20 Unspecified viral hepatitis C without hepatic coma; N20.0 Calculus of kidney
CPT/HCPCS: 76700

== ENCOUNTER → 2021-04-10 | Outpatient (CLI) | payer MEDICARE, BC ==
[2021-04-10 15:29] LABS: Basophils # (A) 0.12 X 10*3/uL (0.00-0.10); Basophils % (A) 1.6 %; Eosinophils # (A) 0.38 X 10*3/uL (0.04-0.35); Eosinophils % (A) 5.2 %; HCT 37.8 % (37.2-46.3); HGB 12.6 g/dL (12.0-15.0); Lymphocytes # (A) 1.83 X 10*3/uL (0.90-5.00); Lymphocytes % (A) 24.9 %; MCH 29.1 pg (27.0-32.0); MCHC 33.3 g/dL (32.0-37.0); MCV 87.3 fL (80.0-97.0); Mean Platelet Volume 12.6 fL (9.5-12.2); Monocytes # (A) 0.68 X 10*3/uL (0.20-1.00); Monocytes % (A) 9.3 %; Neutrophils % (A) 58.5 %; Platelet Count 214 X 10*3/uL (140-440); RBC 4.33 X 10*6/uL (4.10-5.20); RDW 12.4 % (11.5-14.5); WBC 7.35 X 10*3/uL (4.50-10.00)
[2021-04-10 16:46] LABS: INR 0.95 (0.90-1.11); Prothrombin Time 10.4 sec (9.9-11.9)
[2021-04-10 18:24] LABS: African American GFR (CKD) 98.4 (60.0-200.0); Anion Gap 10.5 mmol/L (4.00-12.00); BUN/Creat Ratio 15.74 Ratio (12.00-20.00); Blood Urea Nitrogen 10.5 mg/dL (9.0-27.0); Calcium 9.9 mg/dL (8.7-10.3); Carbon Dioxide 23.5 mmol/L (21.6-31.8); Non-African American GFR(CKD) 84.9 (60.0-200.0); Potassium 4.6 mmol/L (3.5-5.5)
[2021-04-10 18:44] LABS: Hepatitis A Antibody IgM Nonreactive (Nonreactive); Hepatitis B Core IgM Nonreactive (Nonreactive); Hepatitis B Surface Antigen Nonreactive (Nonreactive); Hepatitis C IgG Antibody Reactive (Nonreactive)
== END | disposition home or self-care (01) ==
LOC: LABWHC1 08:11
PROVIDERS: ATTEND Internal Medicine Gastroenterology
DX: B19.20 Unspecified viral hepatitis C without hepatic coma (principal); K74.69 Other cirrhosis of liver
CPT/HCPCS: 36415; 80048; 80074; 85025; 85610; 87522

== ENCOUNTER → 2021-07-02 | Outpatient (CLI) | payer MEDICARE, BC ==
[2021-07-02 19:31] LABS: Chol/HDL Ratio 2.22 Ratio; LDL Cholesterol,Calculated 30.4 mg/dL (0.0-131.0)
== END | disposition home or self-care (01) ==
LOC: LABWHC1 10:34
PROVIDERS: ATTEND Internal Medicine
DX: E10.9 Type 1 diabetes mellitus without complications (principal)
CPT/HCPCS: 36415; 80061; 82043; 82570; 84443

== ENCOUNTER → 2021-10-15 | Outpatient (CLI) | payer MEDICARE, BC ==
--- NOTE | 2021-10-15 13:50 | US ---
EXAMINATION TYPE: US abdomen complete DATE OF EXAM: 10/15/2021 COMPARISON: NONE CLINICAL HISTORY: 76-year-old female K74.69 OTHER CIRRHOSIS OF LIVER, B19.20 VIRAL HEPAT. TECHNIQUE: Multiple sonographic images of the abdomen are obtained. FINDINGS: EXAM MEASUREMENTS: Liver Length: 14 cm Gallbladder Wall: .3 cm CBD: .6 cm Spleen: 8.3 cm Right Kidney: 10.7 x 4.1 x 3.9 cm Left Kidney: 9.4 x 4.9 x 6.7 cm Pancreas: Tail obscured by overlying bowel gas Liver: Mildly attenuating. No focal lesion seen. Gallbladder: Some dependent echogenic nodularity along the posterior wall measuring 1.4 x 0.5 cm, pos sible tumefactive sludge. Evidence for sonographic Fallon's sign: No CBD: wnl Spleen: Limited due to ribs and bowel gas. Right Kidney: wnl Left Kidney: wnl Upper IVC: wnl Abd Aorta: wnl IMPRESSION: 1. Mildly attenuating liver suggesting nonspecific hepatocellular disease. No sonographic evidence fo r hepatoma. 2. Bile duct borderline dilated at 6 mm, acceptable given patient's age. 3. Some dependent echogenic nodularity along the posterior wall of the gallbladder measuring 1.4 x 0. 5 cm, possible tumefactive sludge. Follow-up in 3-6 months to exclude a large polyp.
== END | disposition home or self-care (01) ==
LOC: RADUSWWP 09:41
PROVIDERS: ATTEND Internal Medicine Gastroenterology
DX: K82.8 Other specified diseases of gallbladder (principal); K76.89 Other specified diseases of liver
CPT/HCPCS: 76700

== ENCOUNTER → 2021-10-16 | Outpatient (CLI) | payer MEDICARE, BC ==
[2021-10-16 14:06] LABS: Basophils # (A) 0.09 X 10*3/uL (0.00-0.10); Basophils % (A) 1.2 %; Eosinophils # (A) 0.33 X 10*3/uL (0.04-0.35); Eosinophils % (A) 4.5 %; HCT 42.1 % (37.2-46.3); HGB 13.5 g/dL (12.0-15.0); Immature Grans, Automated 0.3 %; Lymphocytes # (A) 1.68 X 10*3/uL (0.90-5.00); MCH 29.3 pg (27.0-32.0); MCHC 32.1 g/dL (32.0-37.0); MCV 91.5 fL (80.0-97.0); Mean Platelet Volume 12.1 fL (9.5-12.2); Monocytes # (A) 0.62 X 10*3/uL (0.20-1.00); Monocytes % (A) 8.5 %; NRBC Per 100 WBC 0 /100 WBCS (0.0-0.0); Neutrophils # (A) 4.55 X 10*3/uL (1.80-7.70); Neutrophils % (A) 62.5 %; Platelet Count 216 X 10*3/uL (140-440); RDW 12.6 % (11.5-14.5); WBC 7.29 X 10*3/uL (4.50-10.00)
[2021-10-16 14:12] LABS: ALT 21 U/L (8-44); AST 25 U/L (13-35); African American GFR (CKD) 96.2 (60.0-200.0); Albumin 4.4 g/dL (3.8-4.9); Albumin/Globulin Ratio 1.76 (1.60-3.17); Alkaline Phosphatase 81 U/L (41-126); Bilirubin, Conjugated <0.20 mg/dL (0.20-0.40); Blood Urea Nitrogen 14.7 mg/dL (9.0-27.0); Calcium 9.9 mg/dL (8.7-10.3); Carbon Dioxide 22.3 mmol/L (20.0-27.5); Chloride 106 mmol/L (96-109); Globulin 2.5 g/dL (1.6-3.3); Glucose 140 mg/dL (70-110); Potassium 4.5 mmol/L (3.5-5.5); Sodium 138 mmol/L (135-145); Total Protein 6.9 g/dL (6.2-8.2)
[2021-10-16 16:13] LABS: INR 0.94 (0.90-1.11); Prothrombin Time 10.7 sec (9.9-11.9)
== END | disposition home or self-care (01) ==
LOC: LABWHC1 09:04
PROVIDERS: ATTEND Internal Medicine Gastroenterology
DX: K74.69 Other cirrhosis of liver (principal); B19.20 Unspecified viral hepatitis C without hepatic coma
CPT/HCPCS: 36415; 80048; 80076; 82105; 85025; 85610

== ENCOUNTER → 2022-01-07 | Outpatient (CLI) | payer MEDICARE, BC ==
[2022-01-07 17:54] LABS: Chol/HDL Ratio 2.48 Ratio; LDL Cholesterol,Calculated 40.6 mg/dL (0.0-131.0)
[2022-01-07 23:22] LABS: Microalbumin Creatinine Ratio <30 mg/g Creat (0-30)
== END | disposition home or self-care (01) ==
LOC: LABWHC1 09:03
PROVIDERS: ATTEND Internal Medicine
DX: E10.9 Type 1 diabetes mellitus without complications (principal)
CPT/HCPCS: 36415; 80061; 82043; 82570; 84443; 84481

== ENCOUNTER → 2022-03-01 | Outpatient (CLI) | payer MEDICARE, BC ==
--- NOTE | 2022-03-02 06:48 | MM ---
Reason for Exam: Screening (asymptomatic). Last mammogram was performed 1 year(s) and 1 month(s) ago. Patient History: Menarche at age 9. First Full-Term at age 24. Hysterectomy at age 65. Postmenopausal. Estrogen for 2 years until age 48. Progesterone for 2 years until age 48. 06/06/2019, Benign Core Biopsy on the right side. 11/03/2018, Benign Core Biopsy on the right side. Risk Values: [place] 5 year model risk: 3.1%. NCI Lifetime model risk: 5.6%. Prior Study Comparison: 06/06/2019 Right Diagnostic Mammogram, [facility]. 01/08/2020 Bilateral Diagnostic Mammogram, [facility]. 01/29/2021 Bilateral Screening Mammogram, [facility]. Tissue Density: There are scattered fibroglandular densities. Findings: Analyzed By CAD. There is no suspicious group of microcalcifications or new suspicious mass in either breast. Previous mammotome biopsy right breast x2. No significant change from prior exams. Overall Assessment: Benign, BI-RAD 2 Management: Screening Mammogram of both breasts in 1 year. A clinical breast exam by your physician is recommended on an annual basis and results should be correlated with mammographic findings. Electronically signed and approved by: Austin Maurer D.O.
== END | disposition home or self-care (01) ==
LOC: RADMAMWWP 15:47
PROVIDERS: ATTEND Internal Medicine
DX: Z12.31 Encounter for screening mammogram for malignant neoplasm of breast (principal); Z78.0 Asymptomatic menopausal state
CPT/HCPCS: 77063; 77067

== ENCOUNTER → 2022-04-21 | Outpatient (CLI) | payer MEDICARE, BC ==
[2022-04-21 14:09] LABS: Basophils # (A) 0.09 X 10*3/uL (0.00-0.10); Basophils % (A) 1.4 %; Eosinophils # (A) 0.26 X 10*3/uL (0.04-0.35); Eosinophils % (A) 4.1 %; HCT 40.9 % (37.2-46.3); HGB 13.2 g/dL (12.0-15.0); Immature Grans, Automated 0.2 %; Lymphocytes # (A) 1.72 X 10*3/uL (0.90-5.00); Lymphocytes % (A) 26.8 %; MCH 29.2 pg (27.0-32.0); MCHC 32.3 g/dL (32.0-37.0); MCV 90.5 fL (80.0-97.0); Mean Platelet Volume 12.3 fL (9.5-12.2); Monocytes % (A) 7.8 %; NRBC Per 100 WBC 0 /100 WBCS (0.0-0.0); Neutrophils # (A) 3.83 X 10*3/uL (1.80-7.70); Neutrophils % (A) 59.7 %; Platelet Count 199 X 10*3/uL (140-440); RBC 4.52 X 10*6/uL (4.10-5.20); RDW 12.6 % (11.5-14.5); WBC 6.41 X 10*3/uL (4.50-10.00)
[2022-04-21 14:19] LABS: ALT 24 U/L (8-44); AST 24 U/L (13-35); African American GFR (CKD) 96.7 (60.0-200.0); Albumin 4.2 g/dL (3.8-4.9); Albumin/Globulin Ratio 1.63 (1.60-3.17); Alkaline Phosphatase 89 U/L (41-126); BUN/Creat Ratio 21.51 Ratio (12.00-20.00); Bilirubin, Conjugated <0.20 mg/dL (0.20-0.40); Blood Urea Nitrogen 14.8 mg/dL (9.0-27.0); Calcium 9.7 mg/dL (8.7-10.3); Carbon Dioxide 27.8 mmol/L (20.0-27.5); Chloride 105 mmol/L (96-109); Globulin 2.6 g/dL (1.6-3.3); Glucose 130 mg/dL (70-110); Non-African American GFR(CKD) 83.5 (60.0-200.0); Potassium 4.4 mmol/L (3.5-5.5); Sodium 139 mmol/L (135-145); Total Protein 6.7 g/dL (6.2-8.2)
[2022-04-21 14:45] LABS: INR 0.96 (0.90-1.11); Prothrombin Time 10.6 sec (9.9-11.9)
== END | disposition home or self-care (01) ==
LOC: LABWHC1 08:20
PROVIDERS: ATTEND Internal Medicine Gastroenterology
DX: K74.69 Other cirrhosis of liver (principal); B19.20 Unspecified viral hepatitis C without hepatic coma
CPT/HCPCS: 36415; 80048; 80076; 82105; 85025; 85610

== ENCOUNTER → 2022-04-26 | Outpatient (CLI) | payer MEDICARE, BC ==
--- NOTE | 2022-04-26 10:09 | US ---
EXAMINATION TYPE: US abdomen limited DATE OF EXAM: 04/26/2022 COMPARISON: NONE CLINICAL HISTORY: K74.69 B19.20 compensated cirrhosis TO HEP C VIRUS. TECHNIQUE: Multiple sonographic images of the right upper quadrant are obtained. FINDINGS: EXAM MEASUREMENTS: Liver Length: 13.6 cm Gallbladder Wall: .3 cm CBD: .7 cm Right Kidney: 11.1 x 4.6 x 4.6 cm Pancreas: Tail obscured by overlying bowel gas Liver: Increased attenuation, No evidence of suspicious mass. Gallbladder: sludge visualized Evidence for sonographic Fallon's sign: no CBD: wnl upper limits. Right Kidney: No hydronephrosis or masses seen IMPRESSION: 1. No evidence for suspicious hepatic mass. Mild increased echotexture to liver consistent with hepa tocellular disease. The contour of the liver is relatively smooth. 2. Dependent biliary nodularity likely representing sludge/gallstones.
== END | disposition home or self-care (01) ==
LOC: RADUSWWP 08:48
PROVIDERS: ATTEND Internal Medicine Gastroenterology
DX: B19.20 Unspecified viral hepatitis C without hepatic coma (principal)
CPT/HCPCS: 76705

== ENCOUNTER → 2022-05-03 | Outpatient (CLI) | payer MEDICARE, BC | END | disposition home or self-care (01) | LOC: LABWHC1 16:14 | PROVIDERS: ATTEND Internal Medicine Endocrinology, Diabetes & Metabolism | DX: E55.9 Vitamin D deficiency, unspecified (principal) | CPT/HCPCS: 36415; 82306 ==

== ENCOUNTER → 2022-10-08 | Outpatient (CLI) | payer MEDICARE, BC ==
--- NOTE | 2022-10-08 09:56 | US ---
EXAMINATION TYPE: US abdomen complete DATE OF EXAM: 10/08/2022 COMPARISON: Multiple abdominal ultrasounds with most recent 04/26/2022 CLINICAL HISTORY: K74.69 cirrhosis. Follow up TECHNIQUE: Multiple sonographic images of the abdomen are obtained. FINDINGS: EXAM MEASUREMENTS: Liver Length: 15.6 cm Gallbladder Wall: 0.2 cm CBD: 0.5 cm Spleen: 7.7 cm Right Kidney: 10.0 x 4.7 x 4.2 cm Left Kidney: 10.5 x 4.8 x 4.9 cm Pancreas: Echogenic and heterogenous Liver: Coarse in appearance mild hyperattenuation. Gallbladder: dependent echogenic nodularity along the posterior wall, fold seen Evidence for sonographic Fallon's sign: neg CBD: wnl Spleen: limited visualization Right Kidney: No hydronephrosis or masses seen Left Kidney: No hydronephrosis or masses seen Upper IVC: wnl Abd Aorta: Limited visualization of proximal and mid portion The liver is mildly echogenic without focal lesion. The intrahepatic portion of the IVC and visualiz ed abdominal aorta are within normal limits. The proximal and mid portions of the abdominal aorta are obscured by overlying bowel gas. Biliary sludge. Small gallbladder calculi. Common bile duct is unre markable. The visualized portions of the pancreas are echogenic and heterogenous. The spleen is unr emarkable. Kidneys are symmetric and free of hydronephrosis. No renal lesions are seen. IMPRESSION: 1. Mild hepatic steatosis suggested again. No focal lesion. 2. Gallbladder sludge and small calculi without evidence for acute cholecystitis.
== END | disposition home or self-care (01) ==
LOC: RADUSWWP 08:57
PROVIDERS: ATTEND Internal Medicine Gastroenterology
DX: K80.20 Calculus of gallbladder without cholecystitis without obstruction (principal); K76.0 Fatty (change of) liver, not elsewhere classified; K74.69 Other cirrhosis of liver; K82.8 Other specified diseases of gallbladder
CPT/HCPCS: 76700

== ENCOUNTER → 2022-10-09 | Outpatient (CLI) | payer MEDICARE, BC ==
[2022-10-09 13:25] LABS: Basophils % (A) 1.3 %; Eosinophils # (A) 0.31 X 10*3/uL (0.04-0.35); Eosinophils % (A) 4.2 %; Immature Grans, Automated 0.1 %; Lymphocytes # (A) 1.62 X 10*3/uL (0.90-5.00); Lymphocytes % (A) 21.9 %; MCH 28.9 pg (27.0-32.0); MCHC 31.7 g/dL (32.0-37.0); MCV 91.1 fL (80.0-97.0); Mean Platelet Volume 11.7 fL (9.5-12.2); Monocytes # (A) 0.63 X 10*3/uL (0.20-1.00); Monocytes % (A) 8.5 %; NRBC Per 100 WBC 0 /100 WBCS (0.0-0.0); Neutrophils # (A) 4.74 X 10*3/uL (1.80-7.70); Platelet Count 194 X 10*3/uL (140-440); RDW 12.6 % (11.5-14.5); WBC 7.41 X 10*3/uL (4.50-10.00)
[2022-10-09 15:26] LABS: ALT 26 U/L (8-44); AST 22 U/L (13-35); African American GFR (CKD) 95.5 (60.0-200.0); Albumin 4.4 g/dL (3.8-4.9); Albumin/Globulin Ratio 1.91 (1.60-3.17); Alkaline Phosphatase 83 U/L (41-126); BUN/Creat Ratio 21.57 Ratio (12.00-20.00); Bilirubin, Conjugated <0.20 mg/dL (0.20-0.40); Blood Urea Nitrogen 15.1 mg/dL (9.0-27.0); Calcium 9.7 mg/dL (8.7-10.3); Carbon Dioxide 25.9 mmol/L (20.0-27.5); Chloride 106 mmol/L (96-109); Globulin 2.3 g/dL (1.6-3.3); Glucose 148 mg/dL (70-110); Non-African American GFR(CKD) 82.4 (60.0-200.0); Potassium 4.6 mmol/L (3.5-5.5); Sodium 141 mmol/L (135-145); Total Protein 6.7 g/dL (6.2-8.2)
== END | disposition home or self-care (01) ==
LOC: LABWHC1 08:50
PROVIDERS: ATTEND Internal Medicine Gastroenterology
DX: K74.69 Other cirrhosis of liver (principal)
CPT/HCPCS: 36415; 80048; 80076; 82105; 85025

== ENCOUNTER 2022-10-13 07:01 | Day surgery (SDC) | payer MEDICARE, BC ==
[2022-10-13 07:41] VITALS: RESP 16; TEMP 97
[2022-10-13 07:49] LABS: Glucose,Whole Blood 116 mg/dL (70-110)
[2022-10-13] MEDS ORDERED: PROPOFOL 10 MG/ML 20 ML VIAL IV ONE (08:06)
[2022-10-13] MEDS ORDERED: LIDOCAINE 2% INJ 20 MG/ML (2 ML VIAL) ONE (08:06)
--- NOTE | 2022-10-13 08:32 | P.PCN ---
Date of Procedure: 10/13/22 Procedure(s) Performed: BRIEF HISTORY: Patient is a 77-year-old pleasant white female scheduled for an elective colonoscopy as a part of screening for colon cancer/positive cologuard. PROCEDURE PERFORMED: Colonoscopy. PREOPERATIVE DIAGNOSIS: Screening for colon cancer/positive cologuard. IV sedation per Anesthesia. PROCEDURE: After informed consent was obtained, the patient, was brought into the endoscopy unit. IV sedation was administered by Anesthesia under continuous monitoring. Digital rectal examination was normal. Initially the Olympus CF-160 flexible video colonoscope was then inserted in the rectum, gradually advanced into the cecum without any difficulty. Careful examination was performed as the scope was gradually being withdrawn. Ileocecal valve and the appendiceal orifice were visualized and appeared normal. Prep was excellent. Mucosa of the cecum, ascending colon, transverse colon, descending colon, sigmoid colon, and rectum appeared normal. Retroflexion was performed in the rectum and monitor were seen. The patient tolerated the procedure well. IMPRESSION: Normal-appearing colon from rectum to cecum with no evidence of colorectal neoplasia. Small internal hemorrhoids. RECOMMENDATIONS: Findings of this examination were discussed with the patient as well as a family.. She was advised to be a high-fiber diet and fiber supplements as needed.
[2022-10-13 08:54] VITALS: BP 165/86; PULSE 68
== END 2022-10-13 09:15 | disposition home or self-care (01) ==
LOC: ORWHC2ENDO 07:01
PROVIDERS: ATTEND Internal Medicine Gastroenterology
DX: K64.8 Other hemorrhoids (principal); R19.5 Other fecal abnormalities; I10 Essential (primary) hypertension; E07.9 Disorder of thyroid, unspecified; E11.9 Type 2 diabetes mellitus without complications; K21.9 Gastro-esophageal reflux disease without esophagitis; Z79.84 Long term (current) use of oral hypoglycemic drugs; Z79.890 Hormone replacement therapy; Z79.899 Other long term (current) drug therapy
CPT/HCPCS: 45378; J2704; J2001

== ENCOUNTER → 2022-11-03 | Outpatient (CLI) | payer MEDICARE, BC ==
[2022-11-03 15:48] LABS: HGB 13.2 g/dL (12.0-15.0); MCH 28.5 pg (27.0-32.0); MCHC 31.4 g/dL (32.0-37.0); MCV 90.7 fL (80.0-97.0); Mean Platelet Volume 12.7 fL (9.5-12.2); NRBC Per 100 WBC 0 /100 WBCS (0.0-0.0); Platelet Count 211 X 10*3/uL (140-440); RBC 4.63 X 10*6/uL (4.10-5.20); RDW 12.7 % (11.5-14.5); WBC 7.76 X 10*3/uL (4.50-10.00)
[2022-11-03 16:05] LABS: ALT 25 U/L (8-44); AST 26 U/L (13-35); African American GFR (CKD) 87.2 (60.0-200.0); Albumin 4.3 g/dL (3.8-4.9); Albumin/Globulin Ratio 1.88 (1.60-3.17); Alkaline Phosphatase 93 U/L (41-126); BUN/Creat Ratio 18.54 Ratio (12.00-20.00); Calcium 9.9 mg/dL (8.7-10.3); Carbon Dioxide 25.4 mmol/L (20.0-27.5); Chloride 107 mmol/L (96-109); Globulin 2.3 g/dL (1.6-3.3); Glucose 159 mg/dL (70-110); LDL Cholesterol,Calculated 46.9 mg/dL (0.0-131.0); Non-African American GFR(CKD) 75.2 (60.0-200.0); Potassium 4.8 mmol/L (3.5-5.5); Sodium 142 mmol/L (135-145); Total Protein 6.6 g/dL (6.2-8.2)
== END | disposition home or self-care (01) ==
LOC: LABWHC1 08:51
PROVIDERS: ATTEND Internal Medicine
DX: I10 Essential (primary) hypertension (principal); E10.9 Type 1 diabetes mellitus without complications; E78.5 Hyperlipidemia, unspecified
CPT/HCPCS: 36415; 80053; 80061; 83036; 84443; 85027

== ENCOUNTER → 2023-01-29 | Outpatient (CLI) | payer MEDICARE, BC ==
[2023-01-29 23:39] LABS: Chol/HDL Ratio 2.62 Ratio; LDL Cholesterol,Calculated 43.5 mg/dL (0.0-131.0)
[2023-01-30 05:57] LABS: Microalbumin Creatinine Ratio <12 mg/g Cr (0-30)
== END | disposition home or self-care (01) ==
LOC: LABWHC1 10:35
PROVIDERS: ATTEND Internal Medicine Endocrinology, Diabetes & Metabolism
DX: E10.9 Type 1 diabetes mellitus without complications (principal)
CPT/HCPCS: 36415; 80061; 82043; 82306; 82570

== ENCOUNTER 2023-02-10 10:13 | Emergency (ER) | payer MEDICARE, BC ==
--- NOTE | 2023-02-10 10:38 | ED ---
General Adult HPI - General Chief complaint: Neck Pain/Injury Stated complaint: head and neck pain Time Seen by Provider: 02/10/23 10:23 Source: patient, RN notes reviewed Mode of arrival: ambulatory - History of Present Illness Initial comments: 77-year-old female with past medical history significant for hypertension, hypothyroidism, diabetes presents to the emergency department with a chief complaint of headache. Patient reports a right-sided headache that she localizes to the backside of her head 2 days. She denies any trauma or injury. She tried one dose of Motrin with mild symptomatic relief. She's never had this before. Denies history of migraines. Denies dizziness, lightheadedness, nausea, vomiting, vision changes, vision change, chest pain, shortness of breath, Fever, fatigue. She denies anticoagulant use. - Related Data Home Medications Medication Instructions Recorded Confirmed Ascorbic Acid [Vitamin C] 1,000 mg PO DAILY 11/01/15 10/08/22 Aspirin EC [Ecotrin] 81 mg PO DAILY 11/01/15 10/08/22 Atorvastatin [Lipitor] 40 mg PO HS 11/01/15 10/08/22 Calcium Carbonate [Calcium] 600 mg PO DAILY 11/01/15 10/08/22 Dorzolamide HCl/Timolol Maleat 1 drop LEFT EYE BID 11/01/15 10/08/22 [Cosopt Eye Drops] Enalapril [Vasotec] 20 mg PO BID 11/01/15 10/08/22 Glucosamine/Chondr [place]liff A Sod [Osteo 1 each PO DAILY 11/01/15 10/08/22 Bi-Flex Caplet] Levothyroxine Sodium [Synthroid] 112 mcg PO MOTUWETHFRSA 11/01/15 10/08/22 Multivitamins, Thera [Multivitamin] 1 tab PO DAILY 11/01/15 10/08/22 Ubidecarenone [Co Q-10] 300 mg PO DAILY 11/01/15 10/08/22 amLODIPine BESYLATE [Norvasc] 5 mg PO DAILY 11/01/15 10/08/22 metFORMIN HCL [Glucophage] 1,000 mg PO HS 11/01/15 10/08/22 Insulin Aspart (For Pump) [NovoLOG 0.01 unit SQ-PUMP CONTINUOUS 05/18/17 10/08/22 (For Pump)] Fluorometholone 0.1% Ophth Elisa 1 drops RIGHT EYE DAILY 10/18/18 10/08/22 [Fml] Famotidine [Pepcid] 10 mg PO BID PRN 05/21/19 10/08/22 Cholecalciferol [Vitamin D3 (10 600 mg PO DAILY 10/08/22 10/08/22 Mcg = 400 Iu)] Allergies Allergy/AdvReac Type Severity Reaction Status Date / Time bimatoprost [From Lumigan] Allergy Unknown Verified 02/11/23 17:00 esomeprazole [From Nexium] AdvReac Unknown Verified 02/11/23 17:00 lansoprazole [From Prevacid] AdvReac Unknown Verified 02/11/23 17:00 dimoxin Allergy Unknown Uncoded 02/11/23 17:00 Review of Systems ROS Statement: Those systems with pertinent positive or pertinent negative responses have been documented in the HPI. ROS Other: All systems not noted in ROS Statement are negative. Past Medical History Past Medical History: Cancer, Diabetes Mellitus, Eye Disorder, GERD/Reflux, Hearing Disorder / Deafness, Hyperlipidemia, Hypertension, Thyroid Disorder Additional Past Medical History / Comment(s): Glaucoma bilaterally, hx skin cancer left forehead. History of Any Multi-Drug Resistant Organisms: None Reported Past Surgical History: Bladder Surgery, Hysterectomy, Orthopedic Surgery Additional Past Surgical History / Comment(s): Eye surgery, D&C, cornea transplant, R ankle surgery. Benign right breast needle bx November 2018. Past Anesthesia/Blood Transfusion Reactions: Postoperative Nausea & Vomiting (PONV) Additional Past Anesthesia/Blood Transfusion Reaction / Comment(s): Difficult intubation, narrow passageway, states has a letter about this from previous surgery at the other hospital and will bring with her. Past Psychological History: No Psychological Hx Reported Smoking Status: Never smoker Past Alcohol Use History: None Reported Past Drug Use History: None Reported - Past Family History Mother Family Medical History: No Reported History General Exam - General Exam Comments Initial Comments: General: Alert, in no acute distress Head: atraumatic normocephalic. Eyes PERRL, EOMI intact, mucous membranes moist Respiratory: Lungs clear to auscultation bilaterally Cardiovascular: Heart rate regular rate and rhythm Abdominal: Soft without guarding or rebound Extremities: Normal inspection with full range of motion and normal capillary refill Neuroogic: alert and oriented 3, CN II-XII intact, able to ambulate with steady gait Skin: warm dry and intact with normal color Course Vital Signs 02/10/23 02/10/23 10:16 14:02 Temperature 98.2 F 97.9 F Pulse Rate 89 67 Respiratory 18 16 Rate Blood Pressure 153/70 131/73 O2 Sat by Pulse 96 99 Oximetry - Reevaluation(s) Reevaluation #1: 02/10/23 12:22 Should reevaluated. Patient updated on results. Patient does not report any resolution of symptoms however would like to wait few minutes wait for the Toradol to take effect. Pt agreeable with CT with contrast Reevaluation #2: 02/10/23 12:44 Patient requesting to speak with provider with questions about Glucophage and CT contrast. Patient educated on indications and contraindications for CT imaging. Patient is agreeable to plan to get CAT scan with contrast. Medical Decision Making - Medical Decision Making Was pt. sent in by a medical professional or institution (, PA, LOBBY ATTENDANT, urgent care, hospital, or usp...) When possible be specific @ -[No] Did you speak to anyone other than the patient for history (EMS, parent, family, police, friend...)? What history was obtained from this source @ -Patient Did you review nursing and triage notes (agree or disagree)? Why? @ -[I reviewed and agree with nursing and triage notes] Were old charts reviewed (outside hosp., previous admission, EMS record, old EKG, old radiological studies, urgent care reports/EKG's, usp records)? Report findings @ -[No old charts were reviewed] Differential Diagnosis (chest pain, altered mental status, abdominal pain women, abdominal pain men, vaginal bleeding, weakness, fever, dyspnea, syncope, headache, dizziness, GI bleed, back pain, seizure, CVA, palpatations, mental health, musculoskeletal)? @ -[not applicable] EKG interpreted by me (3pts min.). @ -[As above] X-rays interpreted by me (1pt min.). @ -[None done] CT interpreted by me (1pt min.). @ CT with and without contrast is negative for any evidence of hemorrhage or aneurysm U/S interpreted by me (1pt. min.). @ -[None done] What testing was considered but not performed or refused? (CT, X-rays, U/S, labs)? Why? @ -[None] What meds were considered but not given or refused? Why? @ -[None] Did you discuss the management of the patient with other professionals (professionals i.e. , ADONAY, LOBBY ATTENDANT, lab, RT, psych nurse, social worker health services, ip attorney, teacher, policy officer, window caser)? Give summary @ -[No] Was smoking cessation discussed for >3mins.? @ -[No] Was critical care preformed (if so, how long)? @ -[No] Were there social determinants of health that impacted care today? How? (Homelessness, low income, unemployed, alcoholism, drug addiction, transportation, low edu. Level, literacy, decrease access to med. care, [facility], rehab)? @ -[No] Was there de-escalation of care discussed even if they declined (Discuss DNR or withdrawal of care, Hospice)? DNR status @ -[No] What co-morbidities impacted this encounter? (DM, HTN, Smoking, COPD, CAD, Cancer, CVA, ARF, Chemo, Hep., AIDS, mental health diagnosis, sleep apnea, morbid obesity)? @ -[None] Was patient admitted / discharged? Hospital course, mention meds given and route, prescriptions, significant lab abnormalities, going to OR and other pertinent info. @ -Discharged. This is a pleasant 77-year-old female who presents to the emergency department with headache. . Patient had a thorough history and physical exam performed on the emergency department. Physical exam essentially unremarkable. Heart rate regular rate and rhythm, lungs are to auscultation bilaterally, abdomen soft nontender. There are no focal neuro deficits noted upon exam. Patient able to ambulate with a steady gait and move all extremities freely. Patient had lab work and imaging performed which were essentially unremarkable. He should was given Toradol, 1 L of IV fluids with symptomatic relief. I discussed the results in detail the patient verbalized understanding all questions were addressed. She is agreeable with the plan for discharge with recommended close follow-up in 1-2 days. Return precautions were discussed at length. Patient discharged in stable condition. Case discussed with Dr. Amaya [facility] who agrees with clinical plan of care Undiagnosed new problem with uncertain prognosis? @ -[No] Drug Therapy requiring intensive monitoring for toxicity (Heparin, Nitro, Insulin, Cardizem)? @ -[No] Were any procedures done? @ -[No] Diagnosis/symptom? @ -Headache Acute, or Chronic, or Acute on Chronic? @ -Acute Uncomplicated (without systemic symptoms) or Complicated (systemic symptoms)? @ -Uncomplicated Side effects of treatment? @ -[No] Exacerbation, Progression, or Severe Exacerbation? @ -[No] Poses a threat to life or bodily function? How? (Chest pain, USA, MA, pneumonia, PE, COPD, DKA, ARF, appy, cholecystitis, CVA, Diverticulitis, Homicidal, Suicidal, threat to staff... and all critical care pts) @ -Low likelihood - Lab Data Result diagrams: 02/10/23 10:45 02/10/23 10:45 Lab Results 02/10/23 02/10/23 Range/Units 10:45 10:45 WBC 11.1 H (3.8-10.6) k/uL RBC 4.68 (3.80-5.40) m/uL Hgb 14.0 (11.4-16.0) gm/dL Hct 41.0 (34.0-46.0) % MCV 87.7 (80.0-100.0) fL MCH 30.0 (25.0-35.0) pg MCHC 34.2 (31.0-37.0) g/dL RDW 13.0 (11.5-15.5) % Plt Count 158 (150-450) k/uL MPV 10.1 Neutrophils % 78 % Lymphocytes % 12 % Monocytes % 6 % Eosinophils % 1 % Basophils % 1 % Neutrophils # 8.6 H (1.3-7.7) k/uL Lymphocytes # 1.3 (1.0-4.8) k/uL Monocytes # 0.7 (0-1.0) k/uL Eosinophils # 0.1 (0-0.7) k/uL Basophils # 0.1 (0-0.2) k/uL Sodium 136 L (137-145) mmol/L Potassium 4.6 (3.5-5.1) mmol/L Chloride 103 (98-107) mmol/L Carbon Dioxide 24 (22-30) mmol/L Anion Gap 9 mmol/L BUN 15 (7-17) mg/dL Creatinine 0.55 (0.52-1.04) mg/dL Est GFR (CKD-EPI)AfAm >90 (>60 ml/min/1.73 sqM) Est GFR (CKD-EPI)NonAf 90 (>60 ml/min/1.73 sqM) Glucose 188 H (74-99) mg/dL Calcium 9.7 (8.4-10.2) mg/dL Total Bilirubin 0.8 (0.2-1.3) mg/dL AST 29 (14-36) U/L ALT 25 (4-34) U/L Alkaline Phosphatase 88 (38-126) U/L Total Protein 7.5 (6.3-8.2) g/dL Albumin 4.2 (3.5-5.0) g/dL Disposition Clinical Impression: Headache Disposition: HOME SELF-CARE Condition: Stable Additional Instructions: Take Tylenol or Motrin for pain as needed Be sure to stay dehydrated Please return to the nearest emergency department if nausea, vomiting, vision changes or vision loss develop Is patient prescribed a controlled substance at d/c from ED?: No Referrals: Candi Jones MD [Primary Care Provider] - 1-2 days Time of Disposition: 13:21
[2023-02-10] MEDS ORDERED: diphenhydrAMINE 50 MG/ML 1 ML VIAL IVP STA (11:14)
[2023-02-10] MEDS ORDERED: PROCHLORPERAZINE INJ 10 MG/2 ML VIAL IVP STA (11:14)
[2023-02-10] MEDS ORDERED: SODIUM CHLORIDE 0.9% 1,000 ML IV ONE (11:14)
[2023-02-10 11:30] LABS: ALT 25 U/L (4-34); AST 29 U/L (14-36); African American GFR (CKD) >90 (>60 ml/min/1.73 sqM); Albumin 4.2 g/dL (3.5-5.0); Alkaline Phosphatase 88 U/L (38-126); Anion Gap 9 mmol/L; Blood Urea Nitrogen 15 mg/dL (7-17); Calcium 9.7 mg/dL (8.4-10.2); Carbon Dioxide 24 mmol/L (22-30); Chloride 103 mmol/L (98-107); Glucose 188 mg/dL (74-99); Non-African American GFR(CKD) 90 (>60 ml/min/1.73 sqM); Potassium 4.6 mmol/L (3.5-5.1); Sodium 136 mmol/L (137-145); Total Bilirubin 0.8 mg/dL (0.2-1.3); Total Protein 7.5 g/dL (6.3-8.2)
[2023-02-10] MEDS ORDERED: KETOROLAC 15 MG/ML 1 ML VIAL IVP STA (11:39)
[2023-02-10 12:01] LABS: Basophils # (A) 0.1 k/uL (0-0.2); Basophils % (A) 1 %; Eosinophils # (A) 0.1 k/uL (0-0.7); Eosinophils % (A) 1 %; Lymphocytes # (A) 1.3 k/uL (1.0-4.8); Lymphocytes % (A) 12 %; MCHC 34.2 g/dL (31.0-37.0); MCV 87.7 fL (80.0-100.0); Mean Platelet Volume 10.1; Monocytes # (A) 0.7 k/uL (0-1.0); Monocytes % (A) 6 %; Neutrophils # (A) 8.6 k/uL (1.3-7.7); Neutrophils % (A) 78 %; Platelet Count 158 k/uL (150-450); RBC 4.68 m/uL (3.80-5.40); WBC 11.1 k/uL (3.8-10.6)
--- NOTE | 2023-02-10 12:12 | CT ---
EXAMINATION TYPE: CT brain cspine wo con CT DLP: 1439.1 mGycm, Automated exposure control for dose reduction was used. DATE OF EXAM: 02/10/2023 11:34 AM COMPARISON: None.. 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 Cspine: Axial CT images from the skull base to the inferior aspect of T2 we obtained without intraven ous contrast. Coronal and sagittal reformatted images were also reviewed. FINDINGS: Brain: Extra-axial spaces: No abnormal extra-axial fluid collections. Ventricular system: Within normal limits Cerebral parenchyma: Cerebral atrophy. No acute intraparenchymal hemorrhage or mass effect. The patino -white junction is well differentiated. Scattered hypoattenuating areas are seen within the white mat ter. Cerebellum: Unremarkable. Mass effect: No evidence of midline shift. Intracranial vasculature: Atherosclerotic calcifications of the intracranial vessels. Soft tissues: Normal. Calvarium/osseous structures: No depressed skull fracture. Paranasal sinuses and mastoid air cells: Clear. Visualized orbits: Bilateral aphakia Cervical spine: Fracture: None. Osseous structures: Multilevel degenerative disc disease changes with endplate spurring and disc oste ophyte complex's. Multilevel facet arthropathy. Vertebral alignment: Degenerative grade 1 anterolisthesis of C4 on C5. Spinal canal/Neural Foramina: Disc osteophyte complexes at C3-C4, C4-C5, C5-C6, C6-C7 with at least m ild spinal canal stenosis. Facet joint uncovertebral joint arthropathy scattered throughout the cervi bridget spine with varying degrees of neural foraminal stenosis. Neck soft tissues: Prevertebral soft tissues are within normal limits. Other: The airway is patent. The lung apices are clear. Macrocalcification within the isthmus of the thyroid gland. IMPRESSION: 1. No acute intracranial process. 2. Nonspecific white matter changes, likely secondary to chronic small vessel ischemic disease. 3. No evidence of cervical spine fracture. 4. Mild to moderate multilevel degenerative disc disease.
[2023-02-10] MEDS ORDERED: RX INFO: IV CONTRAST WAS GIVEN 1 EACH MISC MISCELLANE PRN (12:23)
--- NOTE | 2023-02-10 13:09 | CT ---
EXAMINATION TYPE: CT brain w con CT DLP: 1100.4 mGycm, Automated exposure control for dose reduction was used. DATE OF EXAM: 02/10/2023 12:58 PM COMPARISON: CT brain C-spine of same date. CLINICAL INDICATION:Female, 77 years old with history of headache; [facility], [facility] TECHNIQUE: Axial CT images of the brain were obtained with IV contrast. One or more CT dose reduction strategies were utilized during this examination. Coronal and sagittal reformats reviewed. FINDINGS: Extra-axial spaces: Right frontal extra-axial homogeneously enhancing mass measuring 2.5 x 1.9 cm ([place] 202, image 48). No surrounding edema. Demonstrates a dural tail. Ventricular system: Within normal limits Cerebral parenchyma: Cerebral atrophy. No acute intraparenchymal hemorrhage or mass effect. The patino -white junction is well differentiated. Scattered hypoattenuating areas are seen within the white mat ter. Cerebellum: Unremarkable. Mass effect: No evidence of midline shift. Intracranial vasculature: Atherosclerotic calcifications of the intracranial vessels. Soft tissues: Normal. Calvarium/osseous structures: No depressed skull fracture. Paranasal sinuses and mastoid air cells: Clear. Visualized orbits: Bilateral aphakia IMPRESSION: 1. No acute intracranial process. 2. Nonspecific white matter changes, likely secondary to chronic small vessel ischemic disease. 3. Right frontal extra-axial enhancing 2.5 cm mass consistent with a benign meningioma.
[2023-02-10 14:04] VITALS: BP 131/73; PULSE 67; RESP 16; TEMP 97.9
== END 2023-02-10 13:38 | disposition home or self-care (01) ==
LOC: EC 10:13
DX: R51.9 Headache, unspecified (principal); E11.9 Type 2 diabetes mellitus without complications; E78.5 Hyperlipidemia, unspecified; I10 Essential (primary) hypertension; E03.9 Hypothyroidism, unspecified; Z79.890 Hormone replacement therapy; Z79.82 Long term (current) use of aspirin; Z79.84 Long term (current) use of oral hypoglycemic drugs; Z79.899 Other long term (current) drug therapy; Z88.6 Allergy status to analgesic agent; Z88.8 Allergy status to other drugs, medicaments and biological substances; Z79.4 Long term (current) use of insulin
CPT/HCPCS: 36415; 80053; 85025; 72125; 70450; 70460; 99284; 96374; 96375 ×2; 96361; J1200; J0780; J1885; Q9967

== ENCOUNTER 2023-02-11 16:42 | Emergency (ER) | payer MEDICARE, BC ==
[2023-02-11 17:01] VITALS: TEMP 97.7
[2023-02-11] MEDS ORDERED: traMADol 50 MG STARTER PACK 3 TAB BTL PO STA (18:09)
[2023-02-11] MEDS ORDERED: ETODOLAC 400 MG TAB PO STA (18:09)
[2023-02-11] MEDS ORDERED: IBUPROFEN 600 MG STARTER PACK 4 TAB BTL PO STA (18:09)
[2023-02-11] MEDS ORDERED: HYDROmorphone 1 MG/ML 1 ML SYRINGE IM STA (18:09)
--- NOTE | 2023-02-11 18:10 | ED ---
Recheck HPI - General Chief Complaint: Headache Stated Complaint: Headache/neck pain Time Seen by Provider: 02/11/23 17:44 Source: patient, RN notes reviewed, old records reviewed Mode of arrival: ambulatory Limitations: no limitations - History of Present Illness Initial Comments: This is a 77-year-old female to the emergency department for evaluation she is a recheck of headache neck pain. Pain in her neck radiating to the top of her head down into her shoulders. Maybe into her eyes or the lateral aspects of her head as well. Symptoms have progressed and has been persistent since yesterday.today thispatient presents today for evaluation regards to severe back pain. Neck pain. No injury. No fevers no new complaints no neurological complaints. Symptoms that progressed throughout the night with no improvement with Motrin today, patient was in the emergency department yesterday for similar complaint MD Complaint: other (persistent neck pain and headache) -: days(s) Returns Today for: persistent/worsening pain related to initial visit Symptoms Since Prior Visit: worsening pain Associated Symptoms: none Treatments Prior to Arrival: Given Pain Meds on - Related Data Home Medications Medication Instructions Recorded Confirmed Ascorbic Acid [Vitamin C] 1,000 mg PO DAILY 11/01/15 10/08/22 Aspirin EC [Ecotrin] 81 mg PO DAILY 11/01/15 10/08/22 Atorvastatin [Lipitor] 40 mg PO HS 11/01/15 10/08/22 Calcium Carbonate [Calcium] 600 mg PO DAILY 11/01/15 10/08/22 Dorzolamide HCl/Timolol Maleat 1 drop LEFT EYE BID 11/01/15 10/08/22 [Cosopt Eye Drops] Enalapril [Vasotec] 20 mg PO BID 11/01/15 10/08/22 Glucosamine/Chondr Ratliff A Sod [Osteo 1 each PO DAILY 11/01/15 10/08/22 Bi-Flex Caplet] Levothyroxine Sodium [Synthroid] 112 mcg PO MOTUWETHFRSA 11/01/15 10/08/22 Multivitamins, Thera [Multivitamin] 1 tab PO DAILY 11/01/15 10/08/22 Ubidecarenone [Co Q-10] 300 mg PO DAILY 11/01/15 10/08/22 amLODIPine BESYLATE [Norvasc] 5 mg PO DAILY 11/01/15 10/08/22 metFORMIN HCL [Glucophage] 1,000 mg PO HS 11/01/15 10/08/22 Insulin Aspart (For Pump) [NovoLOG 0.01 unit SQ-PUMP CONTINUOUS 05/18/17 10/08/22 (For Pump)] Fluorometholone 0.1% Ophth Elisa 1 drops RIGHT EYE DAILY 10/18/18 10/08/22 [Fml] Famotidine [Pepcid] 10 mg PO BID PRN 05/21/19 10/08/22 Cholecalciferol [Vitamin D3 (10 600 mg PO DAILY 10/08/22 10/08/22 Mcg = 400 Iu)] Allergies Allergy/AdvReac Type Severity Reaction Status Date / Time bimatoprost [From Lumigan] Allergy Unknown Verified 02/11/23 17:00 esomeprazole [From Nexium] AdvReac Unknown Verified 02/11/23 17:00 lansoprazole [From Prevacid] AdvReac Unknown Verified 02/11/23 17:00 dimoxin Allergy Unknown Uncoded 02/11/23 17:00 Review of Systems ROS Statement: Those systems with pertinent positive or pertinent negative responses have been documented in the HPI. ROS Other: All systems not noted in ROS Statement are negative. Past Medical History Past Medical History: Cancer, Diabetes Mellitus, Eye Disorder, GERD/Reflux, Hearing Disorder / Deafness, Hyperlipidemia, Hypertension, Thyroid Disorder Additional Past Medical History / Comment(s): Glaucoma bilaterally, hx skin cancer left forehead. History of Any Multi-Drug Resistant Organisms: None Reported Past Surgical History: Bladder Surgery, Hysterectomy, Orthopedic Surgery Additional Past Surgical History / Comment(s): Eye surgery, D&C, cornea transplant, R ankle surgery. Benign right breast needle bx November 2018. Past Anesthesia/Blood Transfusion Reactions: Postoperative Nausea & Vomiting (PONV) Additional Past Anesthesia/Blood Transfusion Reaction / Comment(s): Difficult intubation, narrow passageway, states has a letter about this from previous surgery at the other hospital and will bring with her. Past Psychological History: No Psychological Hx Reported Smoking Status: Never smoker Past Alcohol Use History: None Reported Past Drug Use History: None Reported - Past Family History Mother Family Medical History: No Reported History General Exam Limitations: no limitations General appearance: alert, in no apparent distress Head exam: Present: atraumatic, normocephalic, normal inspection Eye exam: Present: normal appearance, PERRL, EOMI. Absent: scleral icterus, conjunctival injection, periorbital swelling ENT exam: Present: normal exam, mucous membranes moist Neck exam: Present: normal inspection. Absent: tenderness, meningismus, lymphadenopathy Respiratory exam: Present: normal lung sounds bilaterally. Absent: respiratory distress, wheezes, rales, rhonchi, stridor Cardiovascular Exam: Present: regular rate, normal rhythm, normal heart sounds. Absent: systolic murmur, diastolic murmur, rubs, gallop, clicks GI/Abdominal exam: Present: soft, normal bowel sounds. Absent: distended, tenderness, guarding, rebound, rigid Extremities exam: Present: normal inspection, full ROM, normal capillary refill. Absent: tenderness, pedal edema, joint swelling, calf tenderness Back exam: Present: normal inspection Neurological exam: Present: alert, oriented X3, CN II-XII intact Psychiatric exam: Present: normal affect, normal mood Skin exam: Present: warm, dry, intact, normal color. Absent: rash Course Vital Signs 02/11/23 02/11/23 16:58 18:30 Temperature 97.7 F Pulse Rate 101 H 82 Respiratory 22 18 Rate Blood Pressure 150/69 174/68 O2 Sat by Pulse 98 96 Oximetry - Reevaluation(s) Reevaluation #1: 02/11/23 18:12 medical records reviewed Reevaluation #2: 02/11/23 18:12 patient symptoms are improved Reevaluation #3: 02/11/23 18:13 patient informed results questions answered Reevaluation #4: 02/11/23 18:13 Was pt. sent in by a medical professional or institution (, PA, DIRECTOR GIFT, urgent care, hospital, or group home...) When possible be specific @ -no Did you speak to anyone other than the patient for history (EMS, parent, family, police, friend...)? What history was obtained from this source @ -no Did you review nursing and triage notes (agree or disagree)? Why? @ -agree Are old charts reviewed (outside hosp., previous admission, EMS record, old EKG, old radiological studies, urgent care reports/EKG's, group home records)? Report findings @ -yes Differential Diagnosis (chest pain, altered mental status, abdominal pain women, abdominal pain men, vaginal bleeding, weakness, fever, dyspnea, syncope, headache, dizziness, GI bleed, back pain, seizure, CVA, palpatations, mental health, musculoskeletal)? @ -prior EKG interpreted by me (3pts min.). @ -no X-rays interpreted by me (1pt min.). @ -no CT interpreted by me (1pt min.). @ -no U/S interpreted by me (1pt. min.). @ -no What testing was considered but not performed or refused? (CT, X-rays, U/S, labs)? Why? @ -none What meds were considered but not given or refused? Why? @ -none Did you discuss the management of the patient with other professionals (professionals i.e. DrVicente, PA, DIRECTOR GIFT, lab, RT, psych nurse, mental health social worker, semiconductor packages leak tester, teacher, staff submarine warfare officer, returned case inspector)? Give summary @ -no Was smoking cessation discussed for >3mins.? @ -no Was critical care preformed (if so, how long)? @ -no Were there social determinants of health that impacted care today? How? (Homelessness, low income, unemployed, alcoholism, drug addiction, transportation, low edu. Level, literacy, decrease access to med. care, senior living, rehab)? @ -none Was there de-escalation of care discussed even if they declined (Discuss DNR or withdrawal of care, Hospice)? DNR status @ -no What co-morbidities impacted this encounter? (DM, HTN, Smoking, COPD, CAD, Cancer, CVA, ARF, Chemo, Hep., AIDS, mental health diagnosis, sleep apnea, morbid obesity)? @ -none Was patient admitted / discharged? Hospital course, mention meds given and route, prescriptions, significant lab abnormalities, going to OR and other pertinent info. @ - 77 female to the ER with severe neck pain and headache patient has symptoms of occipital neuralgia. Patient given pain control can be discharged home Discharge Undiagnosed new problem with uncertain prognosis? @ -no Drug Therapy requiring intensive monitoring for toxicity (Heparin, Nitro, Insulin, Cardizem)? @ -no Were any procedures done? @ -no Diagnosis/symptom? @ -Occipital neuralgia Acute, or Chronic, or Acute on Chronic? @ -Acute Uncomplicated (without systemic symptoms) or Complicated (systemic symptoms)? @ -Complicated Side effects of treatment? @ -no Exacerbation, Progression, or Severe Exacerbation? @ -exacerbation Poses a threat to life or bodily function? How? (Chest pain, USA, ND, pneumonia, PE, COPD, DKA, ARF, appy, cholecystitis, CVA, Diverticulitis, Homicidal, Suicida l, threat to staff... and all critical care pts) @ -no Reevaluation #5: 02/11/23 18:13 Differential Headache: Migraine, tension, cluster, carbon monoxide, central venous thrombosis, pension karma temporal arteritis, acute closure glaucoma, intercranial hemorrhage, mastoiditis, sinusitis, head injury, this is not meant to be an all-inclusive list. Medical Decision Making - Medical Decision Making 77 female to the ER with severe neck pain and headache patient has symptoms of occipital neuralgia. Patient given pain control can be discharged home Disposition Clinical Impression: Occipital neuralgia Disposition: HOME SELF-CARE Condition: Good Instructions (If sedation given, give patient instructions): Trigeminal Neuralgia (ED), Acute Headache (ED) Is patient prescribed a controlled substance at d/c from ED?: No Referrals: Candi Jones MD [Primary Care Provider] - 1-2 days Time of Disposition: 18:15
[2023-02-11 18:31] VITALS: BP 174/68; PULSE 82; RESP 18
== END 2023-02-11 18:34 | disposition home or self-care (01) ==
LOC: EC 16:42
DX: M54.81 Occipital neuralgia (principal); E11.9 Type 2 diabetes mellitus without complications; I10 Essential (primary) hypertension; E78.5 Hyperlipidemia, unspecified; E07.9 Disorder of thyroid, unspecified; K21.9 Gastro-esophageal reflux disease without esophagitis; Z79.82 Long term (current) use of aspirin; Z79.4 Long term (current) use of insulin; Z79.84 Long term (current) use of oral hypoglycemic drugs; Z79.890 Hormone replacement therapy; Z79.899 Other long term (current) drug therapy; Z88.3 Allergy status to other anti-infective agents; Z88.8 Allergy status to other drugs, medicaments and biological substances
CPT/HCPCS: 99284; 96372; J1170

== ENCOUNTER → 2023-04-14 | Outpatient (CLI) | payer MEDICARE, BC ==
--- NOTE | 2023-04-14 09:33 | US ---
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 FINDINGS: EXAM MEASUREMENTS: Liver Length: 13.3 cm Gallbladder Wall: 0.2 cm CBD: 0.2 cm Spleen: 7.9 cm Right Kidney: 11.4x3.9x5.2 cm Left Kidney: 10.4x5.1x5.1 cm BLOOD BANK ASSISTANT NOTES: exam slightly limited due to body habitus and bowel Pancreas: Tail obscured by overlying bowel gas Liver: There may be slight increased echogenicity of the hepatic parenchyma. Gallbladder: difficult to visualize due to body habitus, artifact and body habitus. No shadowing sto magdalena or hydropic changes seen.Evidence for sonographic Fallon's sign: No CBD: wnl Spleen: wnl Right Kidney: wnl Left Kidney: wnl Upper IVC: wnl Abd Aorta: wnl IMPRESSION: Limited by body habitus and bowel gas. There may be mild fatty infiltration of the liver. No obvious gallstones or biliary ductal dilatation.
== END | disposition home or self-care (01) ==
LOC: RADUSWWP 07:36
PROVIDERS: ATTEND Internal Medicine Gastroenterology
DX: K74.69 Other cirrhosis of liver (principal); R14.3 Flatulence; R93.9 Diagnostic imaging inconclusive due to excess body fat of patient
CPT/HCPCS: 76700

== ENCOUNTER → 2023-04-14 | Outpatient (CLI) | payer MEDICARE, BC ==
[2023-04-14 16:32] LABS: Basophils % (A) 1.4 %; Eosinophils % (A) 4.2 %; HGB 13.6 d/dL (12.0-15.0); Lymphocytes # (A) 1.59 X 10*3/uL (0.90-5.00); Lymphocytes % (A) 22.3 %; MCH 28.7 pg (27.0-32.0); MCHC 31.6 d/dL (32.0-37.0); MCV 90.7 FL (80.0-97.0); Mean Platelet Volume 12.6 FL (9.5-12.2); Monocytes # (A) 0.59 X 10*3/uL (0.20-1.00); Monocytes % (A) 8.3 %; NRBC Per 100 WBC 0 X 10*3/uL (0.00-0.01); Neutrophils # (A) 4.54 X 10*3/uL (1.80-7.70); Neutrophils % (A) 63.7 %; Platelet Count 203 X 10*3/uL (140-440); RBC 4.74 X 10*6/uL (4.10-5.20); RDW 13.1 % (11.5-14.5); WBC 7.13 X 10*3/uL (4.50-10.00)
== END | disposition home or self-care (01) ==
LOC: LABWHC1 08:21
PROVIDERS: ATTEND Internal Medicine Gastroenterology
DX: K74.69 Other cirrhosis of liver (principal)
CPT/HCPCS: 36415; 80048; 80076; 82105; 85025

== ENCOUNTER → 2023-04-15 | Outpatient (CLI) | payer MEDICARE, BC ==
--- NOTE | 2023-04-19 14:23 | MM ---
Reason for Exam: Screening (asymptomatic). Last mammogram was performed 1 year(s) and 2 month(s) ago. Patient History: Menarche at age 9. First Full-Term at age 24. Hysterectomy at age 65. Postmenopausal. Estrogen for 2 years until age 48. Progesterone for 2 years until age 48. 06/06/2019, Benign Core Biopsy on the right side. 11/03/2018, Benign Core Biopsy on the right side. Niece had breast cancer at or over age 50. Niece had breast cancer at or over age 50. Risk Values: Enid 5 year model risk: 3.1%. NCI Lifetime model risk: 5.1%. Prior Study Comparison: 08/24/2016 Bilateral Screening Mammogram, [facility]. 09/12/2017 Bilateral Screening Mammogram, [facility]. 10/11/2018 Bilateral Screening Mammogram, [facility]. 10/13/2018 Right Diagnostic Mammogram, [facility]. 05/07/2019 Right Diagnostic Mammogram, [facility]. 06/06/2019 Right Diagnostic Mammogram, [facility]. 01/08/2020 Bilateral Diagnostic Mammogram, [facility]. 01/29/2021 Bilateral Screening Mammogram, [facility]. 03/01/2022 Bilateral MG 3D screening mammo w/cad, [facility]. Tissue Density: There are scattered fibroglandular densities. Findings: Analyzed By CAD. Pattern appears symmetrical and stable. No significant interval change is evident. Markers are within the right breast. No suspicious groups of microcalcifications, spiculated or lobular masses, architectural distortion or other secondary signs of malignancy are mammographically apparent. Overall Assessment: Benign, BI-RAD 2 Management: Screening Mammogram of both breasts in 1 year. A negative mammogram report should not preclude additional follow up of suspicious palpable abnormalities. Patient should continue monthly self breast exam. A clinical breast exam by your physician is recommended on an annual basis and results should be correlated with mammographic findings. Electronically signed and approved by: Didier Daly D.O. Radiologis
== END | disposition home or self-care (01) ==
LOC: RADMAMWWP 12:33
PROVIDERS: ATTEND Internal Medicine
DX: Z12.31 Encounter for screening mammogram for malignant neoplasm of breast (principal); Z78.0 Asymptomatic menopausal state; Z80.3 Family history of malignant neoplasm of breast
CPT/HCPCS: 77063; 77067

== ENCOUNTER → 2023-04-22 | Outpatient (CLI) | payer MEDICARE, BC ==
[2023-04-22 16:45] LABS: ALT 24 U/L (8-44); AST 23 U/L (13-35); Albumin 4.2 d/dL (3.8-4.9); Albumin/Globulin Ratio 1.91 Ratio (1.60-3.17); Alkaline Phosphatase 97 U/L (41-126); BUN/Creat Ratio 21.29 Ratio (12.00-20.00); Bilirubin, Conjugated <0.20 mg/dL (0.20-0.40); Bilirubin,Unconjugated >0.20 mg/dL (0.20-1.00); Blood Urea Nitrogen 14.9 mg/dL (9.0-27.0); Calcium 9.9 mg/dL (8.7-10.3); Carbon Dioxide 27.1 mmol/L (21.6-31.8); Chloride 106 mmol/L (96-109); Globulin 2.2 d/dL (1.6-3.3); Glucose 161 mg/dL (70-110); Potassium 4.5 mmol/L (3.5-5.5); Sodium 143 mmol/L (135-145); Total Bilirubin 0.4 mg/dL (0.3-1.2); Total Protein 6.4 d/dL (6.2-8.2)
== END | disposition home or self-care (01) ==
LOC: LABWHC1 09:54
PROVIDERS: ATTEND Internal Medicine Gastroenterology
DX: K74.69 Other cirrhosis of liver (principal)
CPT/HCPCS: 36415; 80048; 80076

== ENCOUNTER → 2023-06-08 | Outpatient (CLI) | payer MEDICARE, BC ==
[2023-06-08 18:40] LABS: C-Peptide 0.99 ng/mL (0.81-3.85)
== END | disposition home or self-care (01) ==
LOC: LABWHC1 10:32
PROVIDERS: ATTEND Internal Medicine Endocrinology, Diabetes & Metabolism
DX: E13.9 Other specified diabetes mellitus without complications (principal)
CPT/HCPCS: 36415; 82947; 84681

== ENCOUNTER → 2023-08-24 | Outpatient (CLI) | payer MEDICARE, BC ==
[2023-08-24 16:41] LABS: HCT 42.5 % (37.2-46.3); HGB 13.5 g/dL (12.0-15.0); MCH 28.7 pg (27.0-32.0); MCHC 31.8 g/dL (32.0-37.0); MCV 90.4 FL (80.0-97.0); Mean Platelet Volume 12.4 FL (9.5-12.2); NRBC Per 100 WBC 0 X 10*3/uL (0.00-0.01); Platelet Count 200 X 10*3/uL (140-440); RDW 12.8 % (11.5-14.5); WBC 7.31 X 10*3/uL (4.50-10.00)
[2023-08-24 16:56] LABS: ALT 27 U/L (8-44); AST 26 U/L (13-35); Albumin 4.2 g/dL (3.8-4.9); Albumin/Globulin Ratio 1.83 Ratio (1.60-3.17); Alkaline Phosphatase 98 U/L (41-126); BUN/Creat Ratio 18.43 Ratio (12.00-20.00); Blood Urea Nitrogen 12.9 mg/dL (9.0-27.0); Carbon Dioxide 26.4 mmol/L (21.6-31.8); Chloride 106 mmol/L (96-109); Chol/HDL Ratio 2.36 Ratio; Globulin 2.3 g/dL (1.6-3.3); Glucose 145 mg/dL (70-110); LDL Cholesterol,Calculated 43.7 mg/dL (0.0-131.0); Potassium 4.8 mmol/L (3.5-5.5); Sodium 141 mmol/L (135-145); Total Bilirubin 0.3 mg/dL (0.3-1.2); Total Protein 6.5 g/dL (6.2-8.2)
[2023-08-24 17:53] LABS: Microalbumin Creatinine Ratio <8 mg/g Cr (0-30)
== END | disposition home or self-care (01) ==
LOC: LABWHC1 10:02
PROVIDERS: ATTEND Internal Medicine Endocrinology, Diabetes & Metabolism
DX: E10.9 Type 1 diabetes mellitus without complications (principal)
CPT/HCPCS: 36415; 80053; 80061; 82043; 82570; 84439; 84443; 84481; 85027

== ENCOUNTER → 2024-01-19 | Outpatient (CLI) | payer MEDICARE, BC | END | disposition home or self-care (01) | LOC: RADXRMAIN 10:04 | PROVIDERS: ATTEND Internal Medicine | DX: Z53.9 Procedure and treatment not carried out, unspecified reason (principal) ==

== ENCOUNTER 2024-02-02 23:21 | Emergency (ER) | payer MEDICARE, BC ==
[2024-02-03 00:25] VITALS: BP 152/69; PULSE 65; RESP 16; TEMP 98.4
--- NOTE | 2024-02-03 00:53 | ED ---
Extremity Problem HPI - General Chief complaint: Extremity Problem,Nontraumatic Stated complaint: R Leg injury Time Seen by Provider: 02/03/24 00:49 Source: patient Mode of arrival: wheelchair Limitations: no limitations - History of Present Illness Initial comments: Patient is an 78-year-old woman who presents to have evaluation of right knee pain. Patient states that for approximately 1 week she has had some aching pain posterior aspect of right knee. Today she did some yard work and then when she went back into the house she had more pain and was not able to flex the knee. MD Complaint: extremity pain Onset/Timin -: week(s) Location: right Radiation: none Quality: aching Consistency: constant Improves with: nothing Worsens with: walking Associated Symptoms: denies other symptoms - Related Data Home Medications Medication Instructions Recorded Confirmed Ascorbic Acid [Vitamin C] 1,000 mg PO DAILY 11/01/15 10/08/22 Aspirin EC [Ecotrin] 81 mg PO DAILY 11/01/15 10/08/22 Atorvastatin [Lipitor] 40 mg PO HS 11/01/15 10/08/22 Calcium Carbonate [Calcium] 600 mg PO DAILY 11/01/15 10/08/22 Dorzolamide HCl/Timolol Maleat 1 drop LEFT EYE BID 11/01/15 10/08/22 [Cosopt Eye Drops] Enalapril [Vasotec] 20 mg PO BID 11/01/15 10/08/22 Glucosamine/Chondr Ratliff A Sod [Osteo 1 each PO DAILY 11/01/15 10/08/22 Bi-Flex Caplet] Levothyroxine Sodium [Synthroid] 112 mcg PO MOTUWETHFRSA 11/01/15 10/08/22 Multivitamins, Thera [Multivitamin] 1 tab PO DAILY 11/01/15 10/08/22 Ubidecarenone [Co Q-10] 300 mg PO DAILY 11/01/15 10/08/22 amLODIPine BESYLATE [Norvasc] 5 mg PO DAILY 11/01/15 10/08/22 metFORMIN HCL [Glucophage] 1,000 mg PO HS 11/01/15 10/08/22 Insulin Aspart (For Pump) [NovoLOG 0.01 unit SQ-PUMP CONTINUOUS 05/18/17 10/08/22 (For Pump)] Fluorometholone 0.1% Ophth Elisa 1 drops RIGHT EYE DAILY 10/18/18 10/08/22 [Fml] Famotidine [Pepcid] 10 mg PO BID PRN 05/21/19 10/08/22 Cholecalciferol [Vitamin D3 (10 600 mg PO DAILY 10/08/22 10/08/22 Mcg = 400 Iu)] Allergies Allergy/AdvReac Type Severity Reaction Status Date / Time bimatoprost [From Lumigan] Allergy Unknown Verified 02/03/24 00:25 esomeprazole [From Nexium] AdvReac Unknown Verified 02/03/24 00:25 lansoprazole [From Prevacid] AdvReac Unknown Verified 02/03/24 00:25 dimoxin Allergy Unknown Uncoded 02/11/23 17:00 Review of Systems ROS Statement: Those systems with pertinent positive or pertinent negative responses have been documented in the HPI. ROS Other: All systems not noted in ROS Statement are negative. Constitutional: Denies: fever, weakness Respiratory: Denies: cough, dyspnea Cardiovascular: Denies: chest pain, palpitations, edema Gastrointestinal: Denies: abdominal pain Musculoskeletal: Reports: as per HPI, arthralgia Skin: Denies: rash Neurological: Denies: weakness, numbness, paresthesias Past Medical History Past Medical History: Cancer, Diabetes Mellitus, Eye Disorder, GERD/Reflux, Hearing Disorder / Deafness, Hyperlipidemia, Hypertension, Thyroid Disorder Additional Past Medical History / Comment(s): Glaucoma bilaterally, hx skin cancer left forehead. History of Any Multi-Drug Resistant Organisms: None Reported Past Surgical History: Bladder Surgery, Hysterectomy, Orthopedic Surgery Additional Past Surgical History / Comment(s): Eye surgery, D&C, cornea transplant, R ankle surgery. Benign right breast needle bx November 2018. Past Anesthesia/Blood Transfusion Reactions: Postoperative Nausea & Vomiting (PONV) Additional Past Anesthesia/Blood Transfusion Reaction / Comment(s): Difficult intubation, narrow passageway, states has a letter about this from previous surgery at the other hospital and will bring with her. Past Psychological History: No Psychological Hx Reported Smoking Status: Never smoker Past Alcohol Use History: None Reported Past Drug Use History: None Reported - Past Family History Mother Family Medical History: No Reported History General Exam Limitations: no limitations Course Vital Signs 02/03/24 00:23 Temperature 98.4 F Pulse Rate 65 Respiratory 16 Rate Blood Pressure 152/69 O2 Sat by Pulse 97 Oximetry Disposition Clinical Impression: Leg pain Disposition: HOME SELF-CARE Condition: Good Instructions (If sedation given, give patient instructions): Leg Pain (ED) Is patient prescribed a controlled substance at d/c from ED?: No Referrals: Candi Jones MD [Primary Care Provider] - 1-2 days
--- NOTE | 2024-02-03 03:39 | XR ---
EXAM: XR Right Knee, 3 Views CLINICAL HISTORY: XR Reason: pain TECHNIQUE: Three views of the right knee. COMPARISON: No relevant prior studies available. FINDINGS: Bones/joints: Mild narrowing and osteophytosis of the medial joint space consistent with osteoarthritis. No acute fracture or dislocation is seen. Soft tissues: Possible soft tissue swelling superior to the knee anteriorly and medially. No joint effusion is seen. No foreign body. Vasculature: Mild diffuse arterial calcification is present. IMPRESSION: 1. Possible soft tissue swelling superior to the knee anteriorly and medially. No joint effusion is seen. No foreign body. 2. Mild narrowing and osteophytosis of the medial joint space consistent with osteoarthritis. No acute fracture or dislocation is seen.
--- NOTE | 2024-02-03 03:43 | US ---
EXAM: US Duplex Right Lower Extremity Veins CLINICAL HISTORY: US Reason: pain, possible DVT/hunter cyst TECHNIQUE: Real-time duplex ultrasound scan of the right lower extremity veins integrating B-mode two-dimensional vascular structure, Doppler spectral analysis, color flow Doppler imaging and compression. COMPARISON: No relevant prior studies available. FINDINGS: Deep veins: Unremarkable. No DVT in the visualized common femoral, femoral, proximal deep femoral or popliteal veins. The veins demonstrate normal color flow, are normally compressible, with normal phasic flow and/or augmentation response. Superficial veins: Unremarkable. No thrombus in the visualized great saphenous vein. Soft tissues: No acute findings. No popliteal cyst. IMPRESSION: Negative right lower extremity duplex venous ultrasound. No evidence of DVT.
== END 2024-02-03 03:04 | disposition home or self-care (01) ==
LOC: EC 23:21
DX: M25.561 Pain in right knee (principal); Z88.8 Allergy status to other drugs, medicaments and biological substances
CPT/HCPCS: 99284

== ENCOUNTER → 2024-02-29 | Outpatient (CLI) | payer MEDICARE, BC ==
--- NOTE | 2024-02-29 15:50 | MR ---
INDICATION: Patient age:Female; 78 years old; Reason for study: D33.2 BRAIN CANCER; [facility]. COMPARISON: CT brain 02/10/2023, CT brain C-spine 02/10/2023 TECHNIQUE: Multi planar, multi sequence imaging was performed through the brain. The patient was then given 7 cc of Gadavist intravenously and multi planar, T1 fat-saturation images were obtained. FINDINGS: The patino-white junctions, ventricular system, basal cisterns appear unremarkable. Diffusion-weighted imaging shows no evidence of restricted diffusion to suggest acute/subacute infarct. Redemonstration of a right frontal extra-axial homogeneous T2/FLAIR hyperintense/T1 hypointense 2.6 x 2.0 cm lesion ( series 601, image 27). Previously measured 2.5 x [address] No surrounding edema identified. This demonstrates homogeneous enhancement. Dural tail demonstrated. Intracranial arterial flow voids are m aintained. Midline structures show no abnormality. Patchy areas of high T2/FLAIR signal intensity are seen within the periventricular and subcortical white matter. None of these lesions demonstrate enha ncement. The susceptibility weighted images do not reveal any evidence for micro-hemorrhage. Age-appr opriate cerebral volume loss. The bone marrow signal is within normal limits. The paranasal sinuses are unremarkable. T2 hyperinte nse signal within the left mastoid air cells. Bilateral aphakia. IMPRESSION: 1. No evidence of acute/subacute infarct. 2. Right frontal extra-axial stable 2.6 cm mass with MRI characteristics most consistent with a benig n meningioma. 3. Nonspecific white matter changes, likely related to small vessel ischemic disease.
== END | disposition home or self-care (01) ==
LOC: RADMRIMAIN 14:20
PROVIDERS: ATTEND Psychiatry & Neurology Neurology
DX: D33.2 Benign neoplasm of brain, unspecified
CPT/HCPCS: 70553

== ENCOUNTER → 2024-04-19 | Outpatient (CLI) | payer MEDICARE, BC ==
--- NOTE | 2024-04-19 11:33 | US ---
EXAMINATION TYPE: US abdomen complete DATE OF EXAM: 04/19/2024 COMPARISON: Abdominal ultrasound 04/14/2023, 10/08/2022, 04/26/2022 CLINICAL INDICATION: Female, 78 years old with history of K74.69 CIRRHOSIS OF LIVER; US every 6 month s for cirrhosis, no symptoms TECHNIQUE: Grayscale and color Doppler imaging of the abdomen was performed. FINDINGS: EXAM MEASUREMENTS: Liver Length: 15.2 cm Gallbladder Wall: 0.2 cm CBD: 0.6 cm Spleen: 9.0 cm Right Kidney: 10.6 x 4.6 x 4.0 cm Left Kidney: 11.0 x 4.2 x 5.9 cm CLAIM INVESTIGATOR NOTES: bowel gas limits exam Pancreas: wnl Liver: wnl Gallbladder: fold seen Evidence for sonographic Fallon's sign: no CBD: wnl Spleen: wnl Right Kidney: wnl Left Kidney: wnl Upper IVC: wnl Abd Aorta: wnl The liver demonstrates slightly diffuse increased echogenicity. No overt surface nodularity. No focal lesion identified. The intrahepatic portion of the IVC and proximal abdominal aorta are within carla l limits. There is no evidence of cholelithiasis. Common bile duct is unremarkable. The visualized portions of the pancreas are homogenous. The spleen is unremarkable. Kidneys are symmetric and adry e of hydronephrosis. No renal lesions are seen. IMPRESSION: 1. No ultrasound evidence for acute process. 2. Mild fatty infiltration of the liver without overt cirrhotic appearance. No focal lesion identifie d. [facility], , 04/19/2024 11:31 AM
[2024-04-19 15:25] LABS: Basophils % (A) 1.4 %; Eosinophils # (A) 0.38 X 10*3/uL (0.04-0.35); Eosinophils % (A) 5.5 %; HCT 41.5 % (37.2-46.3); HGB 13.2 g/dL (12.0-15.0); Lymphocytes # (A) 1.41 X 10*3/uL (0.90-5.00); Lymphocytes % (A) 20.3 %; MCH 28.4 pg (27.0-32.0); MCHC 31.8 g/dL (32.0-37.0); MCV 89.4 FL (80.0-97.0); Monocytes # (A) 0.75 X 10*3/uL (0.20-1.00); Monocytes % (A) 10.8 %; NRBC Per 100 WBC 0 X 10*3/uL (0.00-0.01); Neutrophils # (A) 4.29 X 10*3/uL (1.80-7.70); Neutrophils % (A) 61.7 %; Platelet Count 223 X 10*3/uL (140-440); RBC 4.64 X 10*6/uL (4.10-5.20); RDW 12.6 % (11.5-14.5); WBC 6.95 X 10*3/uL (4.50-10.00)
[2024-04-19 15:30] LABS: ALT 21 U/L (8-44); AST 22 U/L (13-35); Albumin 4.2 g/dL (3.8-4.9); Albumin/Globulin Ratio 1.75 Ratio (1.60-3.17); Alkaline Phosphatase 96 U/L (41-126); BUN/Creat Ratio 17.71 Ratio (12.00-20.00); Bilirubin, Conjugated <0.20 mg/dL (0.20-0.40); Bilirubin,Unconjugated >0.30 mg/dL (0.20-1.00); Blood Urea Nitrogen 12.4 mg/dL (9.0-27.0); Calcium 9.8 mg/dL (8.7-10.3); Carbon Dioxide 26.6 mmol/L (21.6-31.8); Chloride 108 mmol/L (96-109); Globulin 2.4 g/dL (1.6-3.3); Glucose 122 mg/dL (70-110); Potassium 4.7 mmol/L (3.5-5.5); Sodium 142 mmol/L (135-145); Total Bilirubin 0.5 mg/dL (0.3-1.2); Total Protein 6.6 g/dL (6.2-8.2)
== END | disposition home or self-care (01) ==
LOC: RADUSWWP 08:49
PROVIDERS: ATTEND Internal Medicine Gastroenterology
CPT/HCPCS: 36415; 76700; 80048; 80076; 82105; 85025

== ENCOUNTER → 2024-07-17 | Outpatient (CLI) | payer MEDICARE, BC ==
--- NOTE | 2024-07-17 12:01 | MM ---
Reason for Exam: Screening (asymptomatic). Last mammogram was performed 1 year(s) and 3 month(s) ago. Patient History: Menarche at age 9. First Full-Term at age 24. Hysterectomy at age 65. Postmenopausal. Estrogen for 2 years until age 48. Progesterone for 2 years until age 48. 06/06/2019, Benign Core Biopsy on the right side. 11/03/2018, Benign Core Biopsy on the right side. Niece had breast cancer at or over age 50. Niece had breast cancer at or over age 50. Risk Values: [place] 5 year model risk: 3.0%. NCI Lifetime model risk: 4.2%. Prior Study Comparison: 01/29/2021 Bilateral Screening Mammogram, [facility]. 03/01/2022 Bilateral MG 3D screening mammo w/cad, [facility]. 04/15/2023 Bilateral MG 3D screening mammo w/cad, [facility]. Tissue Density: There are scattered areas of fibroglandular density. Findings: Analyzed By CAD. There are 2 biopsy clips in the right breast redemonstrated. Occasional tiny benign-appearing round calcification in the bilateral breasts redemonstrated. There is no suspicious new group of microcalcifications or new suspicious mass in either breast. Overall Assessment: Benign, BI-RAD 2 Management: Screening Mammogram of both breasts in 1 year. . Patient should continue monthly self-breast exams. A clinical breast exam by your physician is recommended on an annual basis. This exam should not preclude additional follow-up of suspicious palpable abnormalities. Note on Enid scores and lifetime risk: 1. A Enid score greater than 3% is considered moderate risk. If this is the case, consider specialist referral to assess eligibility for a risk reducing agent. 2. If overall lifetime risk for the development of breast cancer is 20% or higher, the patient may qualify for future screening with alternating mammogram and breast MRI. [facility], , 07/17/2024 11:57 AM. Electronically signed and approved by: Quentin Henry M.D.
== END | disposition home or self-care (01) ==
LOC: RADMAMWWP 11:24
PROVIDERS: ATTEND Internal Medicine
DX: Z12.31 Encounter for screening mammogram for malignant neoplasm of breast (principal); Z78.0 Asymptomatic menopausal state; Z80.3 Family history of malignant neoplasm of breast; R92.323 Mammographic fibroglandular density, bilateral breasts; Z98.82 Breast implant status
CPT/HCPCS: 77063; 77067